=== PATIENT | male | born 1960 | race African-American/Black ===

== ENCOUNTER → 2019-02-05 | Outpatient (CLI) | payer MEDICAID, OTHER ==
[2019-02-05 18:24] LABS: BASO % 0.5 % (0.0-1.0); EOS # 0.2 10^3/uL (0.0-0.50); EOS % 2.9 % (0.0-3.0); HEMATOCRIT 47.6 % (42.0-52.0); HEMOGLOBIN 15.7 g/dl (13.5-17.5); LYMPH % 36.6 % (24.0-44.0); MEAN CORPUSCULAR HEMOGLOBIN 29.6 pg (27.0-33.0); MEAN CORPUSCULAR VOLUME 89.8 fl (80.0-96.0); MONO # 0.5 10^3/uL (0.0-0.8); MONO % 5.6 % (0.0-5.0); NEUTROPHILS # 4.4 10^3/uL (1.8-7.7); PLATELET COUNT, AUTOMATED 271 10^3/uL (150-450); WHITE BLOOD COUNT 8.2 10^3/uL (4.0-10.0)
[2019-02-05 18:41] LABS: HEMOGLOBIN A1c 6.6 %
[2019-02-05 18:54] LABS: ALBUMIN 3.9 GM/DL (3.2-5.2); ALT/SGPT 23 U/L (12-78); BILIRUBIN,TOTAL 0.5 MG/DL (0.2-1.0); BLOOD UREA NITROGEN 17 MG/DL (7-18); CALCIUM LEVEL 9.1 MG/DL (8.5-10.1); CARBON DIOXIDE LEVEL 30 MEQ/L (21-32); CHLORIDE LEVEL 103 MEQ/L (98-107); CHOLESTEROL LEVEL 206 MG/DL (<200); CREATININE FOR GFR 1.12 MG/DL (0.70-1.30); FREE T4 0.96 NG/DL (0.76-1.46); GLOMERULAR FILTRATION RATE > 60.0 (>56); GLUCOSE, FASTING 75 MG/DL (70-100); HDL CHOLESTEROL 40 MG/DL (>40); LDL CHOLESTEROL 120 MG/DL (<100); NON-HDL-C 166 MG/DL; POTASSIUM SERUM 4.6 MEQ/L (3.5-5.1); SODIUM LEVEL 139 MEQ/L (136-145); TOTAL PROTEIN 7.8 GM/DL (6.4-8.2); TRIGLYCERIDES LEVEL 232 MG/DL (<150); TROPONIN I < 0.02 NG/ML (< 0.10)
[2019-02-05 18:55] LABS: TOTAL 25(OH) VITAMIN D 15.8 NG/ML (30.0-100.0)
[2019-02-05 20:14] LABS: APPEARANCE, URINE HAZY (CLEAR); BACTERIA, URINE AUTO 2+ (NEGATIVE); BILIRUBIN, URINE AUTO NEGATIVE (NEGATIVE); BLOOD, URINE BLOOD 2+ (NEGATIVE); COLOR, URINE YELLOW (YELLOW); GLUCOSE, URINE (UA) AUTO NEGATIVE (NEGATIVE); KETONE, URINE AUTO NEGATIVE (NEGATIVE); LEUKOCYTE ESTERASE, URINE AUTO 3+ (NEGATIVE); MUCUS, URINE SMALL (NEGATIVE); NITRITE, URINE AUTO POSITIVE (NEGATIVE); PROTEIN, URINE AUTO NEGATIVE (NEGATIVE); RBC, URINE AUTO 4 /HPF (0-3); SPECIFIC GRAVITY URINE AUTO 1.013 (1.002-1.035); SQUAMOUS EPITHELIAL CELL UR AU 0 /HPF (0-6); UROBILINOGEN, URINE AUTO 0.2 mg/dL (0.0-2.0); WBC, URINE AUTO 71 /HPF (0-3)
[2019-02-08 00:06] LABS: Lyme Disease IgG/IgM Antibodie <0.91 ISR (0.00-0.90); Lyme Disease IgM Ab Quantitati <0.80 index (0.00-0.79)
== END ==
LOC: M LAB 17:19
PROVIDERS: ATTEND Family Medicine
DX: Z13.228 Encounter for screening for other metabolic disorders (principal); R07.89 Other chest pain

== ENCOUNTER → 2019-03-05 | Outpatient (REF) | payer MEDICAID ==
[2019-03-05 20:20] LABS: APPEARANCE, URINE HAZY (CLEAR); BACTERIA, URINE AUTO 2+ (NEGATIVE); BILIRUBIN, URINE AUTO NEGATIVE (NEGATIVE); BLOOD, URINE BLOOD NEGATIVE (NEGATIVE); COLOR, URINE YELLOW (YELLOW); GLUCOSE, URINE (UA) AUTO NEGATIVE (NEGATIVE); KETONE, URINE AUTO NEGATIVE (NEGATIVE); LEUKOCYTE ESTERASE, URINE AUTO 3+ (NEGATIVE); NITRITE, URINE AUTO POSITIVE (NEGATIVE); PROTEIN, URINE AUTO NEGATIVE (NEGATIVE); RBC, URINE AUTO 3 /HPF (0-3); SPECIFIC GRAVITY URINE AUTO 1.018 (1.002-1.035); SQUAMOUS EPITHELIAL CELL UR AU 1 /HPF (0-6); UROBILINOGEN, URINE AUTO 0.2 mg/dL (0.0-2.0); WBC, URINE AUTO 68 /HPF (0-3)
[2019-03-06 00:50] LABS: CHLAMYDIA DNA AMPLIFICATION NEGATIVE (NEGATIVE); GC DNA AMPLIFICATION NEGATIVE (NEGATIVE)
== END ==
LOC: M LAB REF 19:00
PROVIDERS: ATTEND Family Medicine
DX: N30.01 Acute cystitis with hematuria (principal)

== ENCOUNTER 2019-06-30 05:18 | Inpatient (IN) | payer MEDICAID, OTHER ==
[~2019-06-30] VITALS: Ht 175.3 cm; Wt 99.1 kg
[2019-06-30] MEDS ORDERED: MORPHINE 10 MG/ML 1ML VIAL (J2270) IV ONE (05:45)
[2019-06-30] MEDS ORDERED: TAMSULOSIN 0.4 MG CAP PO ONE (05:45)
[2019-06-30] MEDS ORDERED: NS 1,000 ML IV ONE (05:45)
[2019-06-30 06:06] LABS: BASO # 0.1 10^3/uL (0.0-0.2); BASO % 0.3 % (0.0-1.0); EOS # 0.1 10^3/uL (0.0-0.5); EOS % 0.4 % (0.0-3.0); HEMATOCRIT 44.7 % (42.0-52.0); HEMOGLOBIN 15.1 g/dl (13.5-17.5); LYMPH # 2.4 10^3/uL (1.5-5.0); LYMPH % 15.1 % (24.0-44.0); MEAN CORPUSCULAR HEMOGLOBIN 30.8 pg (27.0-33.0); MEAN CORPUSCULAR HGB CONC 33.8 g/dl (32.0-36.5); MEAN CORPUSCULAR VOLUME 91.2 fl (80.0-96.0); MONO % 6.1 % (0.0-5.0); NEUTROPHILS # 12.1 10^3/uL (1.5-8.5); NEUTROPHILS % 77.8 % (36.0-66.0); PLATELET COUNT, AUTOMATED 243 10^3/uL (150-450); WHITE BLOOD COUNT 15.6 10^3/uL (4.0-10.0)
[2019-06-30 06:27] LABS: ALBUMIN 3.9 GM/DL (3.2-5.2); ALT/SGPT 19 U/L (12-78); BILIRUBIN,DIRECT 0.2 MG/DL (0.0-0.2); BILIRUBIN,TOTAL 1.2 MG/DL (0.2-1.0); BLOOD UREA NITROGEN 17 MG/DL (7-18); CALCIUM LEVEL 9.4 MG/DL (8.5-10.1); CARBON DIOXIDE LEVEL 28 MEQ/L (21-32); CHLORIDE LEVEL 102 MEQ/L (98-107); CREATININE FOR GFR 1.25 MG/DL (0.70-1.30); GLOMERULAR FILTRATION RATE > 60.0 (>56); GLUCOSE, FASTING 141 MG/DL (70-100); LIPASE 201 U/L (73-393); POTASSIUM SERUM 3.7 MEQ/L (3.5-5.1); SODIUM LEVEL 135 MEQ/L (136-145); TOTAL PROTEIN 7.7 GM/DL (6.4-8.2)
[2019-06-30] MEDS ORDERED: KETOROLAC 30 MG/ML VIAL (J1885) IV ONE (07:00)
[2019-06-30] MEDS ORDERED: cefTRIAXone SOD 1 GM in D5W MINI-BAG PLUS 50 ML IV ONE (07:00)
[2019-06-30] MEDS ORDERED: MORPHINE 4 MG/ML 1ML VIAL/SYRINGE (J2270) IV PRN (08:30)
[2019-06-30] MEDS ORDERED: ACETAMINOPHEN TAB 650MG DOSE (2X325MG) PO PRN (08:30)
[2019-06-30] MEDS ORDERED: ONDANSETRON 4MG/2ML VIAL (J2405) IV PRN (08:30)
--- NOTE | 2019-06-30 09:08 | HPEPDOC ---
General Date of Admission Jun 30, 2019 at 08:16 Date of Service: Jun 30, 2019 Attending Physician: GAIL REYES DO Chief Complaint The patient is a 58-year-old male admitted with a reason for visit of Flank Pain. Source: Patient Exam Limitations: No limitations Timing/Duration: 4-6 hours Severity: Severe Associated Symptoms: Chills, Nausea, Vomiting, Other (right flank pain) History of Present Illness Patient is 58 years old male with past medical history of hypertension, nephrolithiasis presented hospital with right flank pain. Patient stated the pain was associated with nausea and vomiting, started around 7-8 hours ago, intensive 9 out of 10. Patient noticed pink urine. In ER patient was found to have leukocytosis of 15.6, urine analysis shows microhematuria. Preliminary reading of CT scan showed, dilatation of right ureter, atrophic right kidney, no stones, showed the pelvic mass. Of note, patient stated that 10 years ago he had the surgery, he does not remember diagnosis but he stated that a cyst was removed from his bladder and prostate. He does not remember in which hospital surgery was done. Patient denies fever, palpitations, shortness of breath, diarrhea. Also note patient had history of nephrolithiasis 7 years ago, he passed the stone Home Medications No Active Prescriptions or Reported Meds Allergies Coded Allergies: Contrast Media (Verified Allergy, Intermediate, sob, 06/30/19) Past Medical History Medical History Hypertension, nephrolithiasis Family History Mother had colon cancer Father had emphysema Social History * Smoker: current smoker Alcohol: Denies Drugs: denies A-FIB/CHADSVASC A-FIB History Current/History of A-Fib/PAF?: No Current PO Anticoag Therapy: No Review of Systems Constitutional: Reports: Chills, Malaise, Fatigue Eyes: Denies: Pain, Vision change ENT: Denies: Head Aches, Ear Pain Skin: Denies: Rash, Lesions Pulmonary: Denies: Dyspnea, Cough Cardiovascular: Denies: Chest Pain, Palpitations Gastrointestinal: Reports: Nausea, Vomiting Genitourinary: Reports: Dysuria, Frequency, Hematuria Hematologic: Denies: Bruising, Bleeding Excessively Endocrine: Denies: Polydipsia, Polyphagia Musculoskeletal: Denies: Neck Pain, Back Pain Neurological: Denies: Weakness, Numbness Psych: Reports: Mood Normal Physical Examination General Exam: Positive: Alert, Cooperative Eye Exam: Positive: PERRLA ENT Exam: Positive: Atraumatic, Mucous membr. moist/pink Neck Exam: Positive: Supple; Negative: JVD Chest Exam: Positive: Clear to auscultation Heart Exam: Positive: Tachycardic Telemetry: Positive: No significant arrhythmia Abdomen Exam: Positive: BS Hypoactive Extremity Exam: Negative: Clubbing, Cyanosis Skin Exam: Positive: Nl turgor and temperature Neuro Exam: Positive: Normal Gait, Normal Speech, Strength at 5/5 X4 ext Vital Signs Vital Signs Date Time Temp Pulse Resp B/P (MAP) Pulse Ox O2 Delivery O2 Flow Rate FiO2 06/30/19 06:25 14 06/30/19 05:57 06/30/19 05:18 97.2 86 97 Room Air Laboratory Data Labs 24H Laboratory Tests 2 06/30/19 05:54: Immature Granulocyte % (Auto) 0.3, White Blood Count 15.6H, Red Blood Count 4.90, Hemoglobin 15.1, Hematocrit 44.7, Mean Corpuscular Volume 91.2, Mean Corpuscular Hemoglobin 30.8, Mean Corpuscular Hemoglobin Concent 33.8, Red Cell Distribution Width 13.9, Platelet Count 243, Neutrophils (%) (Auto) 77.8H, Lymphocytes (%) (Auto) 15.1L, Monocytes (%) (Auto) 6.1H, Eosinophils (%) (Auto) 0.4, Basophils (%) (Auto) 0.3, Neutrophils # (Auto) 12.1H, Lymphocytes # (Auto) 2.4, Monocytes # (Auto) 1.0H, Eosinophils # (Auto) 0.1, Basophils # (Auto) 0.1, Nucleated Red Blood Cells % (auto) 0.0, Anion Gap 5L, Glomerular Filtration Rate > 60.0, Calcium Level 9.4, Aspartate Amino Transf (AST/SGOT) 14, Alanine A minotransferase (ALT/SGPT) 19, Alkaline Phosphatase 97, Total Bilirubin 1.2H, Direct Bilirubin 0.2, Total Protein 7.7, Albumin 3.9, Albumin/Globulin Ratio 1.03, Lipase 201 06/30/19 06:12: Urine Color YELLOW, Urine Appearance CLOUDYH, Urine pH 5.0, Urine Specific [place] 1.020, Urine Protein 2+H, Urine Glucose (UA) NEGATIVE, Urine Ketones TRACEH, Urine Blood 3+H, Urine Nitrite NEGATIVE, Urine Bilirubin NEGATIVE, Urine Urobilinogen 2.0H, Urine Leukocyte Esterase 3+H, Urine WBC (Auto) TNTCH, Urine RBC (Auto) 119H, Urine Hyaline Casts (Auto) 0, Urine Bacteria (Auto) NEGATIVE, Urine Squamous Epithelial Cells 1, Urine Mucus (Auto) SMALL, Urine Sperm (Auto) CBC/BMP Laboratory Tests 06/30/19 05:54 Red Blood Count 4.90, Mean Corpuscular Volume 91.2, Mean Corpuscular Hemoglobin 30.8, Mean Corpuscular Hemoglobin Concent 33.8, Red Cell Distribution Width 13.9, Neutrophils (%) (Auto) 77.8 H, Lymphocytes (%) (Auto) 15.1 L, Monocytes (%) (Auto) 6.1 H, Eosinophils (%) (Auto) 0.4, Basophils (%) (Auto) 0.3, Neutrophils # (Auto) 12.1 H, Lymphocytes # (Auto) 2.4, Monocytes # (Auto) 1.0 H, Eosinophils # (Auto) 0.1, Basophils # (Auto) 0.1 Microbiology Microbiology 06/30/19 Urine Culture, Received Pending Assessment/Plan Patient is 58 years old male with past medical history of hypertension, nephrolithiasis presented hospital with right flank pain. Patient stated the pain was associated with nausea and vomiting, started around 7-8 hours ago, intensive 9 out of 10. Patient noticed pink urine. In ER patient was found to have leukocytosis of 15.6, urine analysis shows microhematuria. Preliminary reading of CT scan showed, dilatation of right ureter, atrophic right kidney, no stones, showed the pelvic mass. Problems (1) Pyelonephritis of right kidney Status: Acute Problem Text: Secondary to possible ureteral stricture, nephrolithiasis or pelvis mass urine culture, blood culture Lactic acid Ceftriaxone IV Neurologist consult (2) Flank pain Status: Acute Problem Text: Secondary to possible ureteral stone which already passed or ureteral stricture Pain management Continue antibiotics Patient will need cystoureterogram. We will discuss it with urologist (3) Hematuria Status: Acute Problem Text: Most likely likely secondary to kidney stone IV fluid for now (4) Stricture of right ureter Status: Acute Problem Text: Differential diagnoses include congenital ureteral stricture, compression by pelvis mass which was found on the CT scan (5) Mass of pelvis Problem Text: Unknown etiology for now Preliminary reading of CT scan shows large mass in the pelvis Patient did have a surgery 10 years ago in the pelvis area as he stated for cyst , however he does not remember diagnosis and in which hospital it was done Surgical consult Plan / VTE VTE Prophylaxis Ordered?: Yes GAIL REYES DO Jun 30, 2019 09:08
[2019-06-30 10:00] VITALS: BP 130/90
--- NOTE | 2019-06-30 10:19 | CR.PDOC ---
General Date of Consultation: Jun 30, 2019 Consultation REASON FOR CONSULTATION/CHIEF COMPLAINT: Right flank pain. HISTORY OF PRESENT ILLNESS: 58-year-old male with a 1 day history of right flank pain. Patient states the pain is nonradiating. He reports nausea but denies vomiting. He denies fever or chills. He reports an episode of colic 10 years ago which was secondary to a right ureteral stone. Patient underwent right ureteroscopy. Patient is reporting hematuria. Patient reports a decreased urinary stream. He feels he has incomplete emptying. He denies a history of urinary retention. Patient reports a history of a removal of a pelvic cyst in 2008. 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 CT scan was reviewed. Patient has an atrophic right kidney with hydronephrosis and hydroureter. No stone is present. A large pelvic cyst is present posterior to the prostate and seminal vesicles. ALLERGIES: Please see below. HOME MEDICATIONS: Please see below. PAST MEDICAL HISTORY: 1. Hypertension. PAST SURGICAL HISTORY: 1. Right radical orchiectomy for trauma 2. Circumcision 3. Removal of pelvic cyst 4. Right hand surgery 5. Sinus surgery 6. Ureteroscopy SOCIAL HISTORY: Tobacco use: Patient smokes 1 pack per day for 45 years REVIEW OF SYSTEMS: 10 point review of systems was reviewed and noncontributory PHYSICAL EXAM: Well-developed well-nourished male in no apparent distress HEENT: Unremarkable Respiratory: No respiratory distress Cardiovascular: No peripheral edema Abdomen: Mildly obese, soft nondistended with mild right lower quadrant tenderness. 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 Rectal examination reveals a large firm pelvic mass which is nontender. The prostate is not palpable. Extremities: Full range of motion Neuro: No focal deficits Skin: Warm and dry LABORATORY DATA: Please see below. Urinalysis shows too numerous to count WBCs, 119 RBCs WBC 15.6 BUN 17, creatinine 1.25 CT scan as above ASSESSMENT/PLAN: 1. Right flank pain associated with pyuria. 2. Atrophic right kidney with hydronephrosis and hydroureter. 3. Large pelvic cyst Patient likely has a urinary tract infection. Recommend urine culture and IV antibiotics with IV hydration. Patient appears to have an atrophic kidney which may either be congenital or secondary to his prior ureteroscopy in 2009. Patient also has a large pelvic cyst of unknown etiology. Patient may have an atopic right ureter with a large pelvic ureterocele. Once patient is cleared of his infection and medically stable he may require interventional radiology to aspirate the pelvic cyst. Recommend surgical consultation for his pelvic mass. We will follow with you during his hospitalization. Vital Signs/I&O Vital Signs Date Time Temp Pulse Resp B/P (MAP) Pulse Ox O2 Delivery O2 Flow Rate FiO2 06/30/19 09:50 98.3 89 16 138/78 (98) 98 Room Air Laboratory Data Labs 24H Laboratory Tests 2 06/30/19 05:54: Immature Granulocyte % (Auto) 0.3, White Blood Count 15.6H, Red Blood Count 4.90, Hemoglobin 15.1, Hematocrit 44.7, Mean Corpuscular Volume 91.2, Mean Corpuscular Hemoglobin 30.8, Mean Corpuscular Hemoglobin Concent 33.8, Red Cell Distribution Width 13.9, Platelet Count 243, Neutrophils (%) (Auto) 77.8H, Lymphocytes (%) (Auto) 15.1L, Monocytes (%) (Auto) 6.1H, Eosinophils (%) (Auto) 0.4, Basophils (%) (Auto) 0.3, Neutrophils # (Auto) 12.1H, Lymphocytes # (Auto) 2.4, Monocytes # (Auto) 1.0H, Eosinophils # (Auto) 0.1, Basophils # (Auto) 0.1, Nucleated Red Blood Cells % (auto) 0.0, Anion Gap 5L, Glomerular Filtration Rate > 60.0, Calcium Level 9.4, Aspartate Amino Transf (AST/SGOT) 14, Alanine Aminotransferase (ALT/SGPT) 19, Alkaline Phosphatase 97, Total Bilirubin 1.2H, Direct Bilirubin 0.2, Total Protein 7.7, Albumin 3.9, Albumin/Globulin Ratio 1.03, Lipase 201 06/30/19 06:12: Urine Color YELLOW, Urine Appearance CLOUDYH, Urine pH 5.0, Urine Specific [place] 1.020, Urine Protein 2+H, Urine Glucose (UA) NEGATIVE, Urine Ketones TRACEH, Urine Blood 3+H, Urine Nitrite NEGATIVE, Urine Bilirubin NEGATIVE, Urine Urobilinogen 2.0H, Urine Leukocyte Esterase 3+H, Urine WBC (Auto) TNTCH, Urine RBC (Auto) 119H, Urine Hyaline Casts (Auto) 0, Urine Bacteria (Auto) NEGATIVE, Urine Squamous Epithelial Cells 1, Urine Mucus (Auto) SMALL, Urine Sperm (Auto) 06/30/19 09:09: Lactic Acid Level 0.9 CBC/BMP Laboratory Tests 06/30/19 05:54 Red Blood Count 4.90, Mean Corpuscular Volume 91.2, Mean Corpuscular Hemoglobin 30.8, Mean Corpuscular Hemoglobin Concent 33.8, Red Cell Distribution Width 13.9, Neutrophils (%) (Auto) 77.8 H, Lymphocytes (%) (Auto) 15.1 L, Monocytes (%) (Auto) 6.1 H, Eosinophils (%) (Auto) 0.4, Basophils (%) (Auto) 0.3, Neutrophils # (Auto) 12.1 H, Lymphocytes # (Auto) 2.4, Monocytes # (Auto) 1.0 H, Eosinophils # (Auto) 0.1, Basophils # (Auto) 0.1 Microbiology Microbiology 06/30/19 Blood Culture, Received Pending 06/30/19 Urine Culture, Received Pending Allergies Coded Allergies: Contrast Media (Verified Allergy, Intermediate, sob, 06/30/19) Home Medications No Active Prescriptions or Reported Meds Cristóbal Borrero MD Jun 30, 2019 10:19
[2019-06-30] MEDS: HEPARIN SOD (PORCINE) 5000 UNITS/ML VIAL SC SCH ×2 (10:36→20:51)
[2019-06-30] MEDS: NS 1,000 ML IV SCH ×3 (10:37→19:57)
[2019-06-30 14:00] VITALS: BP 133/74
[2019-06-30 22:00] VITALS: BP 129/89
[2019-07-01 02:00] VITALS: BP 130/88
[2019-07-01] MEDS: NS 1,000 ML IV SCH ×2 (04:11→16:27)
[2019-07-01 06:00] VITALS: BP 130/88
[2019-07-01] MEDS: cefTRIAXone SOD 1 GM in D5W MINI-BAG PLUS 50 ML IV SCH (06:48)
[2019-07-01 07:21] LABS: HEMATOCRIT 40.7 % (42.0-52.0); HEMOGLOBIN 13.4 g/dl (13.5-17.5); MEAN CORPUSCULAR HGB CONC 32.9 g/dl (32.0-36.5); MEAN CORPUSCULAR VOLUME 91.1 fl (80.0-96.0); PLATELET COUNT, AUTOMATED 207 10^3/uL (150-450); RED BLOOD COUNT 4.47 10^6/uL (4.30-6.10); WHITE BLOOD COUNT 9.7 10^3/uL (4.0-10.0)
[2019-07-01 07:49] LABS: BLOOD UREA NITROGEN 12 MG/DL (7-18); CALCIUM LEVEL 8.3 MG/DL (8.5-10.1); CARBON DIOXIDE LEVEL 24 MEQ/L (21-32); CHLORIDE LEVEL 110 MEQ/L (98-107); CREATININE FOR GFR 1.05 MG/DL (0.70-1.30); GLOMERULAR FILTRATION RATE > 60.0 (>56); GLUCOSE, FASTING 111 MG/DL (70-100); POTASSIUM SERUM 3.9 MEQ/L (3.5-5.1); SODIUM LEVEL 138 MEQ/L (136-145)
[2019-07-01] MEDS: HEPARIN SOD (PORCINE) 5000 UNITS/ML VIAL SC SCH ×2 (09:33→20:53)
[2019-07-01] MEDS: TAMSULOSIN 0.4 MG CAP PO SCH (09:33)
[2019-07-01 14:00] VITALS: BP 145/88
--- NOTE | 2019-07-01 14:32 | IPNPDOC ---
Text Note Date of Service The patient was seen on 07/01/19. NOTE Subjective: Patient stated that his abdominal pain subsided significantly. P atient denies fever, chills, nausea, vomiting, palpitations, shortness of breath, diarrhea or dysuria Chylous Objective: Vitals: reviewed General: Alert and oriented x 3, not in distress HEENT: No pallor, Mild scleral icterus. Normal oropharynx, NO cervical lymph nodes. Chest: symmetric with bilateral clear air entry, CVS: S1, S2 heard, normal, no murmurs . Abdomen: non-distended, no surgical scars, soft, Minimal tender, no palpable masses, normal bowel sounds heard. Extremities: no pedal edema, pulses palpable. ELECTRICAL SYSTEMS DRAFTER: no focal motor or sensory deficits. Moves all extremities Skin: no rash. Patient is 58 years old male with past medical history of hypertension, nephrolithiasis presented hospital with right flank pain. Patient stated the pain was associated with nausea and vomiting, started around 7-8 hours ago, intensive 9 out of 10. Patient noticed pink urine. In ER patient was found to have leukocytosis of 15.6, urine analysis shows microhematuria. Preliminary reading of CT scan showed, dilatation of right ureter, atrophic right kidney, no stones, showed the pelvic mass. (1) Pyelonephritis of right kidney Secondary to possible ureteral stricture, nephrolithiasis or pelvis mass urine culture pending PTH elevated, most likely patient has primary hyperparathyroidism which can be cause of nephrolithiasis. We will check calcium ionized and vitamin D. Patient will need pizza maker consult in the outpatient settings. Given his history of nephrolithiasis most likely patient will need parathyroidectomy. blood culture negative for 24 hours Ceftriaxone IV Urologist Dr Borrero follows him (2) Flank pain resolved Secondary to possible ureteral stone which already passed or ureteral stricture Pain management Continue antibiotics Patient will need cystoureterogram. We will discuss it with urologist (3) Hematuria Most likely likely secondary to kidney stone IV fluid for now (4) Stricture of right ureter Differential diagnoses include congenital ureteral stricture, compression by pelvis mass which was found on the CT scan (5) Mass of pelvis Problem Text: Unknown etiology for now Preliminary reading of CT scan shows large mass in the pelvis Patient did have a surgery 10 years ago in the pelvis area as he stated for cyst, however he does not remember diagnosis and in which hospital it was done Surgical consult VS,Mathew, I+O VS, Mathew, I+O Laboratory Tests 07/01/19 07:11 Red Blood Count 4.47, Mean Corpuscular Volume 91.1, Mean Corpuscular Hemoglobin 30.0, Mean Corpuscular Hemoglobin Concent 32.9, Red Cell Distribution Width 14.0, Calcium Level 8.3 L Vital Signs Date Time Temp Pulse Resp B/P (MAP) Pulse Ox O2 Delivery O2 Flow Rate FiO2 07/01/19 06:00 98.9 86 16 130/88 (102) 99 06/30/19 09:50 Room Air I&O- Last 24 Hours up to 6 AM 07/01/19 05:59 Intake Total 3290 ml Output Total 675 ml Balance 2615 ml GAIL REYES DO Jul 01, 2019 14:32
--- NOTE | 2019-07-01 16:14 | CR.PDOC ---
General Surgery Consultation Date of Consultation 06/30/19 History and Physical CONSULT REPORT FOR: hospitalist service REASON FOR CONSULTATION: pelvic mass HISTORY OF PRESENT ILLNESS: Patient presented with acute onset of right flank pain that started overnight accompanied with nausea and vomiting. He also reports hematuria. He reports a remote history of removing a cyst in between his bladder and prostate. He could not recall where this was done. This is roughly 10 years ago. He is also not sure what the final pathology was area he denies any chronic concerns about his kidney. He did report a history of urinary bladder stones. In the ER he was evaluated was found to have evidence for pyelonephritis. His kidney looks atrophic. He has some underlying hydro nephrosis and was found to have this cystic mass in his pelvis that is compressing on the urinary bladder also pushing the rectum towards the left side. He denies any complaints of changes in his bowel habits, bleeding with bowel movements. He reports prior colonoscopy in 2015 or 17 in [place] I believe and he was told he had polyps. He denies any unexplained weight loss. PAST MEDICAL HISTORY: 1. Hypertension 2. Nephrolithiasis. PAST SURGICAL HISTORY: INCLUDES: 1. Resection of a cyst in the pelvis. The final pathology is unknown. Presumably this is benign.. ALLERGIES: Please see below. FAMILY HISTORY: Mother was reported to have colon cancer. HOME MEDICATIONS: Please see below. REVIEW OF SYSTEMS: GENERAL: Patient reports having chills, not sure if he was febrile at that time. HEENT: [Denies blurred vision and double vision. Denies ear symptoms. Denies h oarseness]. NECK: Denies any neck pain CARDIOVASCULAR: [Denies chest pain and palpitations]. MUSCULOSKELETAL: [Denies arthralgias, back pain and thrombophlebitis]. SKIN: [Denies rash]. NEUROLOGIC: [Denies headache, stroke and transient ischemic attack]. HEMATOLOGY/ONCOLOGY: [Denies bleeding or clotting disorder]. HEART: [Denies any chest pains, palpitations, paroxysmal dyspnea, orthopnea]. PULMONARY: [Denies chronic cough, dyspnea and wheezing]. GASTROINTESTINAL: As noted in HPI. Has had colonoscopy in 2005 CR 2016. GENITOURINARY: See HPI. ENDOCRINE: [Denies polydipsia, polyphagia, polyuria, heat or cold intolerance]. INFECTIOUS: [Denies any recent upper respiratory tract infection, UTI, need for use of antibiotics]. NUTRITION: [Reports good appetite]. PHYSICAL EXAMINATION: VITALS SIGNS: Please see below. GENERAL APPEARANCE: Patient seen laying flat on bed appears comfortable at the time that I saw him. Reports pains about 7 out of 10 mostly in his right flank denies any anterior abdominal discomfort. He looks overall healthy appearing. SKIN: Warm and dry. HEENT: [Normocephalic, atraumatic. [place] palpebral conjunctiva, anicteric sclerae]. NECK: [Supple, no thyromegaly. No obvious jugular venous distention]. LUNGS: [Clear to auscultation bilaterally. No wheezing appreciated]. HEART: [No chest wall abnormalities. Regular rate and rhythm with no murmurs appreciated]. ABDOMEN: Abdomen is round, soft, and nondistended. No tenderness on the upper abdomen. Minimal discomfort with pressure at the suprapubic area with no point tenderness. He has moderate CVA tenderness on mild palpation on the right side not on the left. EXTREMITIES: [Extremities have no deformities. No edema identified] ANCILLARIES: . LABORATORY DATA: Please see below. IMAGING STUDIES: CT abdomen and pelvis Markedly atrophic right kidney which demonstrate moderate to severe hydronephrosis and hydroureter to the level of the UVJ with no hyperdense obstructing stone. The renal after we could be congenital or be secondary to chronic outlet obstruction with obstruction being at the UVJ due to either s tricture or obstructive lesion. Perinephric and periureteral stranding suggest acute underlying infection pyelitis/pyelonephritis. Contracted urinary bladder limiting its evaluation with suggestion of wall thickening. 3.9 x 8.6 x 7.6 and right hemipelvic cyst it is not clear if this is originating in exophytic from the prostate gland or seminal vesicle or from the [place]' duct. 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 The presence of some surgical clips in the right pelvis raises the question of postsurgical seroma or urinoma. IMPRESSION AND PLAN: Pelvic cyst Hydronephrosis with a chronic atrophic kidney on the right side Pelvic cyst most likely related to the urogenital structure. Given prior history of something being removed there, I would think this would've been related to that. Unfortunately we do not have any pathology from that. Patient could not recall where the procedure was done. I don't think this is related to the rectum. He is not having any symptoms related to his bowel movements and has had a previous colonoscopy in the past 3 years or so that did not mention any structural abnormality. Granted we doesn't have any report of that. There is any question, can refer to radiology for biopsy of the cyst for pathology reasons. I don't think there is any active general surgical issues at this point and will sign out.. Vital Signs Vital Signs Date Time Temp Pulse Resp B/P (MAP) Pulse Ox O2 Delivery O2 Flow Rate FiO2 07/01/19 14:00 98.0 72 20 145/88 (107) 97 06/30/19 09:50 Room Air I&Os I&O- Last 24 Hours up to 6 AM 07/01/19 05:59 Intake Total 3290 ml Output Total 675 ml Balance 2615 ml Laboratory Data Labs 24H Laboratory Tests 2 07/01/19 07:11: Nucleated Red Blood Cells % (auto) 0.0, Anion Gap 4L, Glomerular Filtration Rate > 60.0, Blood Urea Nitrogen 12, Creatinine 1.05, Sodium Level 138, Potassium Level 3.9, Chloride Level 110H, Carbon Dioxide Level 24, Calcium Level 8.3L 07/01/19 14:49: Whole Blood Ionized Calcium 4.4L CBC/BMP Laboratory Tests 07/01/19 07:11 Red Blood Count 4.47, Mean Corpuscular Volume 91.1, Mean Corpuscular Hemoglobin 30.0, Mean Corpuscular Hemoglobin Concent 32.9, Red Cell Distribution Width 14.0, Calcium Level 8.3 L Microbiology Microbiology 06/30/19 Blood Culture - Preliminary, Resulted No growth after 24 hours . All specim... 06/30/19 Urine Culture, Received Pending Home Medications No Active Prescriptions or Reported Meds Allergies Coded Allergies: Contrast Media (Verified Allergy, Intermediate, sob, 06/30/19) EVERT BARNETT MD Jul 01, 2019 16:14
[2019-07-01 22:00] VITALS: BP 150/89
[2019-07-01] MEDS ORDERED: SENOKOT S TAB PO PRN (22:15)
[2019-07-02] MEDS: NS 1,000 ML IV SCH ×2 (01:56→06:39)
[2019-07-02 05:55] LABS: HEMATOCRIT 39.9 % (42.0-52.0); HEMOGLOBIN 13.1 g/dl (13.5-17.5); MEAN CORPUSCULAR HEMOGLOBIN 29.4 pg (27.0-33.0); MEAN CORPUSCULAR HGB CONC 32.8 g/dl (32.0-36.5); MEAN CORPUSCULAR VOLUME 89.5 fl (80.0-96.0); PLATELET COUNT, AUTOMATED 220 10^3/uL (150-450); RED BLOOD COUNT 4.46 10^6/uL (4.30-6.10)
[2019-07-02 06:00] VITALS: BP 150/90
[2019-07-02 06:18] LABS: BLOOD UREA NITROGEN 10 MG/DL (7-18); CALCIUM LEVEL 8.6 MG/DL (8.5-10.1); CARBON DIOXIDE LEVEL 24 MEQ/L (21-32); CHLORIDE LEVEL 109 MEQ/L (98-107); CREATININE FOR GFR 1.01 MG/DL (0.70-1.30); GLOMERULAR FILTRATION RATE > 60.0 (>56); GLUCOSE, FASTING 97 MG/DL (70-100); MAGNESIUM LEVEL 1.9 MG/DL (1.8-2.4); POTASSIUM SERUM 3.8 MEQ/L (3.5-5.1); SODIUM LEVEL 139 MEQ/L (136-145)
[2019-07-02] MEDS: cefTRIAXone SOD 1 GM in D5W MINI-BAG PLUS 50 ML IV SCH (06:39)
--- NOTE | 2019-07-02 08:02 | IPNPDOC ---
Date Seen The patient was seen on 07/02/19. Progress Note SUBJECTIVE: Patient reports no pain. Denies voiding sx. OBJECTIVE PHYSICAL EXAMINATION: VITAL SIGNS: Please see below. Abdomen: soft non tender, no CVA-tenderness LABORATORY DATA, IMAGING STUDIES, MICROBIOLOGY: Please see below. urine c/s E. coli ASSESSMENT AND PLAN: UTI, urine c/s positive for E. coli. May change to po antibiotics and continue treatment 10-14 days. Patient has an atrophic right kidney and large pelvic mass. This can be worked up as an outpatient. Urologically clear for discharge. Patient should follow up with Dr. Llanes in 2 weeks. DISPOSITION: home VS, I&O, 24H, Fishbone Vital Signs/I&O Vital Signs Date Time Temp Pulse Resp B/P (MAP) Pulse Ox O2 Delivery O2 Flow Rate FiO2 07/01/19 22:00 98.9 77 19 150/89 (109) 100 06/30/19 09:50 Room Air I&O- Last 24 Hours up to 6 AM 07/02/19 06:00 Intake Total 3930 ml Output Total 1950 ml Balance 1980 ml Laboratory Data 24H LABS Laboratory Tests 2 07/01/19 14:49: Whole Blood Ionized Calcium 4.4L 07/02/19 05:27: Nucleated Red Blood Cells % (auto) 0.0, Anion Gap 6L, Glomerular Filtration Rate > 60.0, Blood Urea Nitrogen 10, Creatinine 1.01, Sodium Level 139, Potassium Level 3.8, Chloride Level 109H, Carbon Dioxide Level 24, Calcium Level 8.6, Magnesium Level 1.9 CBC/BMP Laboratory Tests 07/02/19 05:27 Red Blood Count 4.46, Mean Corpuscular Volume 89.5, Mean Corpuscular Hemoglobin 29.4, Mean Corpuscular Hemoglobin Concent 32.8, Red Cell Distribution Width 13.7, Calcium Level 8.6 Microbiology Microbiology 06/30/19 Blood Culture - Preliminary, Resulted No growth after 24 hours . All specim... 06/30/19 Urine Culture - Final, Complete Escherichia Coli Cristóbal Borrero MD Jul 02, 2019 08:02
[2019-07-02] MEDS: HEPARIN SOD (PORCINE) 5000 UNITS/ML VIAL SC SCH (09:20)
[2019-07-02] MEDS: TAMSULOSIN 0.4 MG CAP PO SCH (09:20)
[2019-07-02] MEDS ORDERED: BACT800T5 PO (13:48)
[2019-07-02 14:00] VITALS: BP 158/95
[2019-07-02] MEDS ORDERED: ACET1TAB55 PO (15:31)
[2019-07-02] MEDS ORDERED: TRAM50TA2 PO (15:31)
--- NOTE | 2019-07-02 16:16 | DS.PDOC ---
Discharge Summary General Date of Admission Jun 30, 2019 at 08:16 Date of Discharge 07/02/19 Discharge Summary PROCEDURES PERFORMED DURING STAY: [None]. ADMITTING DIAGNOSES: 1. Pyelonephritis 2. Hematuria 3. R. ureter stricture 4. Pelvis mass DISCHARGE DIAGNOSES: 1. Pyelonephritis 2. Hematuria 3. R. ureter stricture 4. Pelvis mass COMPLICATIONS/CHIEF COMPLAINT: Flank Pain. HISTORY OF PRESENT ILLNESS: "Patient is 58 years old male with past medical history of hypertension, nephrolithiasis presented hospital with right flank pain. Patient stated the pain was associated with nausea and vomiting, started around 7-8 hours ago, intensive 9 out of 10. Patient noticed pink urine. In ER patient was found to have leukocytosis of 15.6, urine analysis shows microhematuria. Preliminary reading of CT scan showed, dilatation of right ureter, atrophic right kidney, no stones, showed the pelvic mass. Of note, patient stated that 10 years ago he had the surgery, he does not remember diagnosis but he stated that a cyst was removed from his bladder and prostate. He does not remember in which hospital surgery was done. Patient denies fever, palpitations, shortness of breath, diarrhea. Also note patient had history of nephrolithiasis 7 years ago, he passed the stone" HOSPITAL COURSE: Patient's urine culture grew E. coli and patient has been treated with IV Rocephin with improvement in symptoms. Was evaluated by both Surgery and Urology while inpatient as patient was noted to have pelvic mass/cyst with atrophic R. kidney. Kidney function remains stable during admission and patient currently asymptomatic. Was deem to be appropriate for outpatient follow up by urology with Dr. Llanes in 2 weeks. Patient to be discharged to f/u PMD and Urology. In addition, PTH was also noted to be elevated and will need Endocrine follow up. Was not seen inpatient, will need referral from PMD. DISCHARGE MEDICATIONS: Please see below. ALLERGIES: Please see below. PHYSICAL EXAMINATION ON DISCHARGE: VITAL SIGNS: Please see below. General: No acute distress, Alert Eyes: Normal sclera, EOMI, GARRICK HENT: Atraumatic, neck supple, moist mucous membranes Cardiovascular: Normal rate, normal rhythm. No murmurs appreciated. Pulmonary: Clear to auscultation b/l, no wheezing GI: Soft, nontender, nondistended Skin: Warm and dry Neuro: CN grossly intact. No focal deficits. Strengths equal b/l. Psych: oriented x 3 LABORATORY DATA: Please see below. IMAGING: CT abdomen and pelvis- Markedly atrophic right kidney which demonstrate moderate to severe hydronephrosis and hydroureter to the level of the UVJ with no hyperdense obstructing stone. The renal after we could be congenital or be secondary to chronic outlet obstruction with obstruction being at the UVJ due to either stricture or obstructive lesion. Perinephric and periureteral stranding suggest acute underlying infection pyelitis/pyelonephritis. Contracted urinary bladder limiting its evaluation with suggestion of wall thickening. 3.9 x 8.6 x 7.6 and right hemipelvic cyst it is not clear if this is originating in exophytic from the prostate gland or seminal vesicle or from the Cowpers' duct. Also given its proximity the rectum and good curber and duplication cyst. The presence of some surgical clips in the right pelvis raises the question of postsurgical seroma or urinoma. ACTIVITY: [As tolerated]. DIET: 2 gram sodium diet DISCHARGE PLAN: f/u PMD AND UROLOGY Get Endocrine referral from PMD for elevated PTH DISPOSITION: home. DISCHARGE INSTRUCTIONS: f/u PMD AND UROLOGY Get Endocrine referral from PMD for elevated PTH ITEMS TO FOLLOWUP ON ON OUTPATIENT: None DISCHARGE CONDITION: [Stable]. TIME SPENT ON DISCHARGE: 35 minutes. Vital Signs/I&Os Vital Signs Date Time Temp Pulse Resp B/P (MAP) Pulse Ox O2 Delivery O2 Flow Rate FiO2 07/02/19 14:00 97.8 69 20 158/95 (116) 98 06/30/19 09:50 Room Air I&O- Last 24 Hours up to 6 AM 07/02/19 06:00 Intake Total 5670 ml Output Total 2450 ml Balance 3220 ml Laboratory Data Labs 24H Laboratory Tests 2 07/02/19 05:27: Nucleated Red Blood Cells % (auto) 0.0, Anion Gap 6L, Glomerular Filtration Rate > 60.0, Blood Urea Nitrogen 10, Creatinine 1.01, Sodium Level 139, Potassium Level 3.8, Chloride Level 109H, Carbon Dioxide Level 24, Calcium Level 8.6, Magnesium Level 1.9 CBC/BMP Laboratory Tests 07/02/19 05:27 Red Blood Count 4.46, Mean Corpuscular Volume 89.5, Mean Corpuscular Hemoglobin 29.4, Mean Corpuscular Hemoglobin Concent 32.8, Red Cell Distribution Width 13.7, Calcium Level 8.6 Microbiology Microbiology 06/30/19 Blood Culture - Preliminary, Resulted No Growth after 48 hours. All Specime... 06/30/19 Urine Culture, Received Pending 06/30/19 Urine Culture - Final, Complete Escherichia Coli Discharge Medications Scheduled Sulfamethoxazole/Trimethoprim (Bactrim Ds Tablet) 1 Each Tablet, 1 TAB PO BID Scheduled PRN Acetaminophen (Acetaminophen) 325 Mg Tablet, 650 MG PO Q6HP PRN for MILD PAIN or TEMP > 101 Tramadol HCl (Tramadol HCl) 50 Mg Tablet, 50 MG PO Q8HP PRN for pain Allergies Coded Allergies: Contrast Media (Verified Allergy, Intermediate, sob, 06/30/19) LISE LOCKHART MD Jul 02, 2019 16:16
== END 2019-07-02 16:09 | disposition home or self-care (01) | DRG 463 ==
LOC: M ED 05:18 → M ED INP 08:16 → M MSPAV 10:22
PROVIDERS: ADMIT Internal Medicine; ATTEND Student in an Organized Health Care Education/Training Program
DX: N13.6 Pyonephrosis (principal); I10 Essential (primary) hypertension; R19.07 Generalized intra-abdominal and pelvic swelling, mass and lump; R31.9 Hematuria, unspecified; N20.0 Calculus of kidney; F17.210 Nicotine dependence, cigarettes, uncomplicated; D72.829 Elevated white blood cell count, unspecified; Z91.041 Radiographic dye allergy status; B96.20 Unspecified Escherichia coli [E. coli] as the cause of diseases classified elsewhere; N26.1 Atrophy of kidney (terminal); E21.0 Primary hyperparathyroidism

== ENCOUNTER → 2019-07-10 | Outpatient (CLI) | payer OTHER ==
[~2019-07-10] MED LIST: ACET1TAB55 PO; BACT800T5 PO; TRAM50TA2 PO
[2019-07-10 12:53] LABS: HEMOGLOBIN A1c 6.4 %
[2019-07-10 13:06] LABS: ALBUMIN 3.9 GM/DL (3.2-5.2); ALT/SGPT 31 U/L (12-78); BILIRUBIN,TOTAL 0.8 MG/DL (0.2-1.0); BLOOD UREA NITROGEN 15 MG/DL (7-18); CALCIUM LEVEL 9.4 MG/DL (8.5-10.1); CARBON DIOXIDE LEVEL 27 MEQ/L (21-32); CHLORIDE LEVEL 107 MEQ/L (98-107); CHOLESTEROL LEVEL 185 MG/DL (<200); CHOLESTEROL RISK RATIO 5.285 (<5); CREATININE FOR GFR 1.45 MG/DL (0.70-1.30); GLOMERULAR FILTRATION RATE > 60.0 (>56); GLUCOSE, FASTING 104 MG/DL (70-100); HDL CHOLESTEROL 35 MG/DL (>40); LDL CHOLESTEROL 126 MG/DL (<100); NON-HDL-C 150 MG/DL; SODIUM LEVEL 137 MEQ/L (136-145); TOTAL PROTEIN 7.6 GM/DL (6.4-8.2); TRIGLYCERIDES LEVEL 122 MG/DL (<150)
[2019-07-10 13:14] LABS: MALB URINE SIEMENS 8.3 MG/L; MAU/CREAT RATIO 5.6 MCG/MG (0.0-30.0)
== END ==
LOC: M LAB 11:45
PROVIDERS: ATTEND Family Medicine
DX: E11.9 Type 2 diabetes mellitus without complications (principal)

== ENCOUNTER → 2019-07-19 | Outpatient (CLI) | payer OTHER ==
[~2019-07-19] MED LIST changes: +FUROSEMIDE 20 MG/2 ML VIAL (J1940) As Ordered ONE
--- NOTE | 2019-07-19 11:13 | REP ---
Nuclear renal scintigraphy with differential flow function analysis and post Lasix washout renography: History: Atrophic kidney. Comparison CT study June 30, 2019. The CT study shows a fairly large right pelvic cyst adjacent to and perhaps arising from the right seminal vesicle or prostate. There is ipsilateral atrophy and hydronephrosis of the right kidney. Technique: 8.8 mCi technetium 99m Mag 3 is injected and posterior flow and excretory phase images are acquired. Renal cortical regions of interest are drawn for time activity analysis. 20 mg of intravenous Lasix is administered and post Lasix washout renography is carried out. Scintigraphic findings: Posterior flow study shows normal perfusion of the left kidney and markedly delayed visualization of the right kidney. Excretory phase images demonstrate a homogeneous nephrogram phase on the left and very poor function of the right kidney. The left ureter is visualized at 2-3 minute carissa. The right ureter is never visualized during the initial 30 minutes. The intrarenal collecting system on the right is visualized and appears mildly hydronephrotic. Pre and postvoid images are remarkable only for overall poor clearance of soft tissue background activity. Differential renal function analysis is asymmetric with 92% of overall renal cortical counts coming from the left kidney and 8% from the right. Time to peak activity is normal for the left kidney at 2.0 minutes. Time to half max activity is normal for the left kidney at 9.9 minutes. Post Lasix renography shows poor initial uptake in the right kidney with the time to half Lasix bilaterally at 12 minutes. Impression: Atrophic right kidney with very poor function. Mild right hydronephrosis. Electronically Signed by Sabas Vasquez MD 07/19/2019 12:58 P
== END ==
LOC: M RAD 06:57
PROVIDERS: ATTEND Nurse Practitioner Family
DX: N26.1 Atrophy of kidney (terminal) (principal); N13.30 Unspecified hydronephrosis
CPT/HCPCS: 78708; A9562; J1940

== ENCOUNTER 2019-09-21 14:55 | Emergency (ER) | payer OTHER ==
[~2019-09-21] VITALS: Ht 175.3 cm; Wt 95.5 kg
[~2019-09-21 14:55] MED LIST changes: -FUROSEMIDE 20 MG/2 ML VIAL (J1940) As Ordered ONE
[2019-09-21] MEDS ORDERED: ASPIRIN 81 MG CHEW TABLET PO ONE (15:15)
[2019-09-21] MEDS ORDERED: NITROGLYCERIN 0.4 MG SUBL TABLET SL PRN (15:15)
[2019-09-21 15:16] LABS: BASO % 0.5 % (0.0-1.0); EOS # 0.2 10^3/uL (0.0-0.5); EOS % 2.1 % (0.0-3.0); HEMATOCRIT 46.9 % (42.0-52.0); LYMPH % 40.4 % (24.0-44.0); MEAN CORPUSCULAR VOLUME 90.7 fl (80.0-96.0); MONO # 0.6 10^3/uL (0.0-0.8); MONO % 7.5 % (0.0-5.0); NEUTROPHILS # 3.6 10^3/uL (1.5-8.5); NEUTROPHILS % 49.4 % (36.0-66.0); PLATELET COUNT, AUTOMATED 283 10^3/uL (150-450); RED BLOOD COUNT 5.17 10^6/uL (4.30-6.10); WHITE BLOOD COUNT 7.3 10^3/uL (4.0-10.0)
[2019-09-21 15:25] VITALS: BP 193/102
[2019-09-21 15:34] LABS: INR 1.01
--- NOTE | 2019-09-21 15:35 | REP ---
Chest x-ray: Two views. History: Chest pain . Comparison study: No comparison study . Findings: The lungs are well inflated and free of infiltrate. The pleural angles are sharp. The heart size is normal. Pulmonary vasculature is not increased. No significant bony abnormality is seen. Monitoring electrodes are visible. Impression: Negative chest x-ray. Electronically Signed by Sabas Vasquez MD 09/21/2019 03:27 P
[2019-09-21 15:49] LABS: ALBUMIN 3.5 GM/DL (3.2-5.2); ALT/SGPT 19 U/L (12-78); BILIRUBIN,DIRECT 0.1 MG/DL (0.0-0.2); BILIRUBIN,TOTAL 0.5 MG/DL (0.2-1.0); BLOOD UREA NITROGEN 15 MG/DL (7-18); CALCIUM LEVEL 8.6 MG/DL (8.5-10.1); CARBON DIOXIDE LEVEL 26 MEQ/L (21-32); CHLORIDE LEVEL 107 MEQ/L (98-107); CK-MB VALUE MASS 1.6 NG/ML (<3.6); CPK CREATINE PHOSPHOKINASE 115 U/L (39-308); CREATININE FOR GFR 1.21 MG/DL (0.70-1.30); FREE T4 1.06 NG/DL (0.76-1.46); GLOMERULAR FILTRATION RATE > 60.0 (>56); GLUCOSE, FASTING 122 MG/DL (70-100); LIPASE 359 U/L (73-393); MB/CK RELATIVE INDEX 1.39 (< OR =4); POTASSIUM SERUM 3.7 MEQ/L (3.5-5.1); SODIUM LEVEL 137 MEQ/L (136-145); TOTAL PROTEIN 7.6 GM/DL (6.4-8.2); TROPONIN I < 0.02 NG/ML (< 0.10)
[2019-09-21 21:53] LABS: CK-MB VALUE MASS 1.3 NG/ML (<3.6); CPK CREATINE PHOSPHOKINASE 107 U/L (39-308); MB/CK RELATIVE INDEX 1.21 (< OR =4); TROPONIN I < 0.02 NG/ML (< 0.10)
[2019-09-21 22:15] VITALS: BP 155/98
--- NOTE | 2019-09-22 05:54 | ECGEPIP ---
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
--- NOTE | 2019-09-22 21:06 | ECGEPIP ---
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
== END 2019-09-21 22:42 | disposition home or self-care (01) ==
LOC: M ED 14:55
DX: R07.9 Chest pain, unspecified (principal); I10 Essential (primary) hypertension; Z87.442 Personal history of urinary calculi; F17.200 Nicotine dependence, unspecified, uncomplicated; Z91.041 Radiographic dye allergy status; Z91.14 Patient's other noncompliance with medication regimen

== ENCOUNTER → 2019-12-13 | Outpatient (REF) ==
[2019-12-13 12:23] LABS: RUBELLA IgG QUALITATIVE IMMUNE (IMMUNE)
[2019-12-14 14:07] LABS: HERPES ZOSTER, VARICELLA IgG 1723 index (Immune >165); HERPES ZOSTER, VARICELLA IgM <0.91 index (0.00-0.90); RUBEOLA IgG ANTIBODY >300.0 AU/mL (Immune >16.4)
== END ==
LOC: M LAB 11:09
PROVIDERS: ATTEND Nurse Practitioner Adult Health
DX: Z00.00 Encounter for general adult medical examination without abnormal findings (principal)

== ENCOUNTER → 2020-06-04 | Outpatient (REF) | payer OTHER, MEDICAID ==
[2020-06-04 13:34] LABS: AMORPHOUS SEDIMENT SMALL (NEGATIVE); APPEARANCE, URINE CLEAR (CLEAR); BACTERIA, URINE AUTO 1+ (NEGATIVE); BILIRUBIN, URINE AUTO NEGATIVE (NEGATIVE); BLOOD, URINE BLOOD NEGATIVE (NEGATIVE); COLOR, URINE YELLOW (YELLOW); GLUCOSE, URINE (UA) AUTO NEGATIVE (NEGATIVE); KETONE, URINE AUTO NEGATIVE (NEGATIVE); LEUKOCYTE ESTERASE, URINE AUTO TRACE (NEGATIVE); NITRITE, URINE AUTO NEGATIVE (NEGATIVE); PROTEIN, URINE AUTO NEGATIVE (NEGATIVE); RBC, URINE AUTO 1 /HPF (0-3); SPECIFIC GRAVITY URINE AUTO 1.015 (1.002-1.035); SQUAMOUS EPITHELIAL CELL UR AU 0 /HPF (0-6); UROBILINOGEN, URINE AUTO 0.2 mg/dL (0.0-2.0); WBC, URINE AUTO 3 /HPF (0-3)
[2020-06-04 14:19] LABS: BASO % 0.6 % (0.0-1.0); EOS # 0.2 10^3/uL (0.0-0.5); HEMATOCRIT 46.5 % (42.0-52.0); HEMOGLOBIN 15.4 g/dl (13.5-17.5); LYMPH # 2.5 10^3/uL (1.5-5.0); LYMPH % 35.5 % (24.0-44.0); MEAN CORPUSCULAR HEMOGLOBIN 29.8 pg (27.0-33.0); MEAN CORPUSCULAR HGB CONC 33.1 g/dl (32.0-36.5); MEAN CORPUSCULAR VOLUME 90.1 fl (80.0-96.0); MONO # 0.5 10^3/uL (0.0-0.8); NEUTROPHILS # 3.7 10^3/uL (1.5-8.5); NEUTROPHILS % 53.6 % (36.0-66.0); PLATELET COUNT, AUTOMATED 285 10^3/uL (150-450); RED BLOOD COUNT 5.16 10^6/uL (4.30-6.10)
[2020-06-04 14:53] LABS: ALBUMIN 3.8 GM/DL (3.2-5.2); ALT/SGPT 29 U/L (12-78); BILIRUBIN,TOTAL 0.6 MG/DL (0.2-1.0); BLOOD UREA NITROGEN 19 MG/DL (7-18); CALCIUM LEVEL 9.8 MG/DL (8.5-10.1); CARBON DIOXIDE LEVEL 28 MEQ/L (21-32); CHLORIDE LEVEL 104 MEQ/L (98-107); CHOLESTEROL LEVEL 184 MG/DL (<200); CREATININE FOR GFR 1.21 MG/DL (0.70-1.30); FREE T4 1.27 NG/DL (0.76-1.46); GLOMERULAR FILTRATION RATE > 60.0 (>56); GLUCOSE, FASTING 132 MG/DL (70-100); HDL CHOLESTEROL 42 MG/DL (>40); LDL CHOLESTEROL 122 MG/DL (<100); NON-HDL-C 142 MG/DL; POTASSIUM SERUM 4.2 MEQ/L (3.5-5.1); SODIUM LEVEL 139 MEQ/L (136-145); TOTAL PROTEIN 7.2 GM/DL (6.4-8.2); TRIGLYCERIDES LEVEL 102 MG/DL (<150)
[2020-06-04 16:42] LABS: HEMOGLOBIN A1c 6.7 %
== END ==
LOC: M LAB REF 12:24
PROVIDERS: ATTEND Nurse Practitioner Family
DX: I10 Essential (primary) hypertension (principal); F41.9 Anxiety disorder, unspecified; E55.9 Vitamin D deficiency, unspecified; F17.218 Nicotine dependence, cigarettes, with other nicotine-induced disorders; E11.9 Type 2 diabetes mellitus without complications

== ENCOUNTER → 2021-02-21 | Outpatient (CLI) | payer OTHER, MEDICAID ==
[~2021-02-21] MED LIST changes: +ACET-907 PO; +AMLO1TAB24 PO; +DOXY-350 PO
== END ==
LOC: M LABSMTC 08:57
PROVIDERS: ATTEND Anesthesiology
DX: Z01.812 Encounter for preprocedural laboratory examination (principal); Z20.822 Contact with and (suspected) exposure to COVID-19

== ENCOUNTER 2021-02-26 11:06 | Day surgery (SDC) | payer OTHER ==
[~2021-02-26] VITALS: Ht 175.3 cm; Wt 99.3 kg
[~2021-02-26 11:06] MED LIST changes: +NS 1,000 ML IV ONE
[2021-02-26] MEDS ORDERED: propofoL 200 MG/20 ML VIAL As Ordered ONE (13:49)
[2021-02-26] MEDS ORDERED: LIDOCAINE 2% INJ 100 MG/5 ML SYRINGE As Ordered ONE (13:49)
--- NOTE | 2021-02-26 14:28 | ROOR ---
Patient Name: Alfredo Polanco Procedure Date: 02/26/2021 1:51 PM Date of : 1960 Age: 60 Room: [facility] Gender: Male Note Status: Finalized Procedure: Colonoscopy Indications: High risk colon cancer surveillance: Personal history of colonic polyps, Family history of colon cancer in a first-degree relative before age 60 years Providers: Laith Baeza MD Referring MD: Yina Rosenberg NP Requesting Provider: Medicines: Monitored Anesthesia Care Complications: No immediate complications. Procedure: Pre-Anesthesia Assessment: - The heart rate, respiratory rate, oxygen saturations, blood pressure, adequacy of pulmonary ventilation, and response to care were monitored throughout the procedure. The Colonoscope was introduced through the anus and advanced to 10 cm into the ileum. The colonoscopy was performed without difficulty. The patient tolerated the procedure well. The quality of the bowel preparation was good. Findings: The perianal and digital rectal examinations were normal. Four semi-sessile polyps were found in the ascending colon and cecum. The polyps were 4 to 6 mm in size. These polyps were removed with a cold snare. Resection and retrieval were complete. Three sessile polyps were found in the splenic flexure. The polyps were 4 to 5 mm in size. These polyps were removed with a cold snare. Resection and retrieval were complete. Eight sessile polyps were found in the recto-sigmoid colon and sigmoid colon. The polyps were 4 to 5 mm in size. These polyps were removed with a cold snare. Resection and retrieval were complete. Internal hemorrhoids were found during retroflexion. The hemorrhoids were moderate. Retroflexion in the right colon was performed. Benign appearing extrinsic impression in the rectal/rectosigmoid colon. Impression: - Four 4 to 6 mm polyps in the ascending colon and in the cecum, removed with a cold snare. Resected and retrieved. - Three 4 to 5 mm polyps at the splenic flexure, removed with a cold snare. Resected and retrieved. - Eight 4 to 5 mm polyps at the recto-sigmoid colon and in the sigmoid colon, removed with a cold snare. Resected and retrieved. - Internal hemorrhoids. - (4-5 cm extrinsic impression on the colon in the rectal/rectosigmoid area. Benign appearance.--soft to digital palpation) Recommendation: - Repeat colonoscopy for surveillance. - Perform CT scan (computed tomography) of the pelvis with contrast at appointment to be scheduled. - My office will call you in the next few days to set you up for this study/exam. Procedure Code(s): --- Professional --- 27532, Colonoscopy, flexible; with removal of tumor(s), polyp(s), or other lesion(s) by snare technique Diagnosis Code(s): --- Professional --- Z80.0, Family history of malignant neoplasm of digestive organs K64.8, Other hemorrhoids K63.5, Polyp of colon Z86.010, Personal history of colonic polyps CPT copyright 2019 [employer]. All rights reserved. The codes documented in this report are preliminary and upon events director review may be revised to meet current compliance requirements. Laith Baeza MD Laith Baeza MD 02/26/2021 2:27:39 PM Electronically signed by Laith Baeza MD Number of Addenda: 0 Note Initiated On: 02/26/2021 1:51 PM Estimated Blood Loss: Estimated blood loss: none.
[2021-02-26 14:42] VITALS: BP 162/78
== END 2021-02-26 15:03 | disposition home or self-care (01) ==
LOC: M OPP 11:06
PROVIDERS: ATTEND Internal Medicine Gastroenterology
DX: Z12.11 Encounter for screening for malignant neoplasm of colon (principal); Z86.010 Personal history of colon polyps; Z80.0 Family history of malignant neoplasm of digestive organs; K63.5 Polyp of colon; K64.8 Other hemorrhoids; F17.210 Nicotine dependence, cigarettes, uncomplicated; Z79.899 Other long term (current) drug therapy; Z91.041 Radiographic dye allergy status; Z80.3 Family history of malignant neoplasm of breast

== ENCOUNTER → 2021-03-25 | Outpatient (CLI) | payer OTHER ==
[~2021-03-25] MED LIST changes: -NS 1,000 ML IV ONE
--- NOTE | 2021-03-25 10:11 | REP ---
INDICATION: NEOPLASM OF DIGESTIVE SYSTEM. COMPARISON: 06/30/2019 TECHNIQUE: Standard helical technique without intravenous contrast FINDINGS: The lung bases are clear. There is no significant change in appearance of the solid intra-organs or gallbladder. There is no change in appearance of the pancreas, adrenal glands, or kidneys. Note is again made of marked right renal atrophy. The hydronephrosis and hydroureter seen previously on the right has resolved. The right-sided perinephric stranding seen previously has resolved. There is no significant change in appearance of the abdominal aorta or para-regions. There is no significant change in appearance of the bowel loops or the mesenteries. There is no free fluid or free air. The large posterior pelvic cystic mass is completely unchanged. It measures approximately 9 x 8.4 by 7.5 cm. No adenopathy has developed. Bone window technique throughout the exam shows the osseous structures to be stable. IMPRESSION: 1. Improved right renal collecting system findings as described above. 2. Stable pelvic cystic mass, again, etiology uncertain. 3. Other findings as described above. <Electronically signed by Rahat Solis > 03/25/21 1007
== END ==
LOC: M RAD 09:33
PROVIDERS: ATTEND Internal Medicine Gastroenterology
DX: D49.0 Neoplasm of unspecified behavior of digestive system (principal)

== ENCOUNTER → 2021-10-08 | Outpatient (CLI) | payer OTHER | LOC: M SOG 14:46 | PROVIDERS: ATTEND Orthopaedic Surgery Hand Surgery | DX: M25.531 Pain in right wrist (principal) ==

== ENCOUNTER → 2021-10-09 | Outpatient (CLI) | payer OTHER ==
[2021-10-09 11:48] LABS: BLOOD UREA NITROGEN 11 MG/DL (7-18); CREATININE FOR GFR 1.18 MG/DL (0.70-1.30); GLOMERULAR FILTRATION RATE > 60.0 (>49)
== END ==
LOC: M LAB 10:03
PROVIDERS: ATTEND Orthopaedic Surgery Hand Surgery
DX: S60.811A Abrasion of right wrist, initial encounter (principal); W18.30XA Fall on same level, unspecified, initial encounter; Y92.009 Unspecified place in unspecified non-institutional (private) residence as the place of occurrence of the external cause

== ENCOUNTER 2021-10-11 13:24 | Inpatient (IN) | payer OTHER ==
[~2021-10-11] VITALS: Ht 175.3 cm; Wt 99.6 kg
[2021-10-11] MEDS: fentaNYL 100 MCG/2 ML INJECTION (J3010) IV PRN (13:38)
[2021-10-11] MEDS ORDERED: PIPERACILLIN/TAZOBACTAM SOD 3.375 GM in D5W MINI-BAG PLUS 50 ML IV ONE (14:15)
[2021-10-11] MEDS ORDERED: VANCOMYCIN HCL 2,000 MG in D5W 500 ML IV ONE (14:15)
[2021-10-11] MEDS ORDERED: KETOROLAC 30 MG/ML 1ML VIAL IV ONE (14:25)
[2021-10-11 15:13] LABS: BASO % 0.4 % (0.0-1.0); EOS # 0.1 10^3/uL (0.0-0.5); EOS % 0.9 % (0.0-3.0); HEMATOCRIT 44.9 % (42.0-52.0); HEMOGLOBIN 15.2 g/dl (13.5-17.5); LYMPH % 20.6 % (24.0-44.0); MEAN CORPUSCULAR HEMOGLOBIN 29.3 pg (27.0-33.0); MEAN CORPUSCULAR HGB CONC 33.9 g/dl (32.0-36.5); MEAN CORPUSCULAR VOLUME 86.5 fl (80.0-96.0); MONO # 0.4 10^3/uL (0.0-0.8); MONO % 4.5 % (2.0-8.0); NEUTROPHILS # 7.2 10^3/uL (1.5-8.5); NEUTROPHILS % 73.2 % (36.0-66.0); PLATELET COUNT, AUTOMATED 338 10^3/uL (150-450); RED BLOOD COUNT 5.19 10^6/uL (4.30-6.10); WHITE BLOOD COUNT 9.8 10^3/uL (4.0-10.0)
[2021-10-11] MEDS ORDERED: HOME MED LIST COMPLETE! XX SCH (15:25)
[2021-10-11 15:45] LABS: BLOOD UREA NITROGEN 15 MG/DL (7-18); CALCIUM LEVEL 9.4 MG/DL (8.8-10.2); CARBON DIOXIDE LEVEL 27 MEQ/L (21-32); CHLORIDE LEVEL 98 MEQ/L (98-107); CREATININE FOR GFR 1.28 MG/DL (0.70-1.30); GLOMERULAR FILTRATION RATE > 60.0 (>49); GLUCOSE, FASTING 440 MG/DL (70-100); POTASSIUM SERUM 4.3 MEQ/L (3.5-5.1); SODIUM LEVEL 131 MEQ/L (136-145)
[2021-10-11] MEDS ORDERED: NS 1,000 ML IV ONE (15:50)
[2021-10-11] MEDS ORDERED: DEXTROSE 50% 50 ML SYRINGE IV PRN (16:00)
[2021-10-11] MEDS ORDERED: GLUCOSE 4GM CHEW TABLET PO PRN (16:00)
[2021-10-11] MEDS ORDERED: VANCOMYCIN HCL 1,000 MG, VIAL MATE ADAPTER 1 EACH in NS 250 ML IV ONE ×2 (16:00→17:00)
[2021-10-11] MEDS ORDERED: MOM 30ML SUSPENSION UDC PO PRN (16:00)
[2021-10-11] MEDS ORDERED: LEVEMIR (INSULIN DETEMIR) 1 UNITS/0.01ML SC ONE (16:00)
[2021-10-11] MEDS ORDERED: GLUCAGON INJ 1MG VIAL SC PRN (16:00)
[2021-10-11 16:04] LABS: ERYTHROCYTE SEDIMENTATION RATE 32 mm/hr (0-20)
[2021-10-11 16:40] LABS: HEMOGLOBIN A1c 9.7 %
[2021-10-11 17:40] VITALS: BP 150/82
[2021-10-11] MEDS: HumaLOG INSULIN (NovoLOG) PER UNIT SC SCH ×2 (18:14→21:22)
[2021-10-11] MEDS: ACETAMINOPHEN TAB 650MG DOSE (2X325MG) PO PRN (18:14)
[2021-10-11] MEDS ORDERED: PIPERACILLIN IV SCH (18:20)
[2021-10-11] MEDS ORDERED: FLUID PLACE HOLDER IV SCH ×2 (18:20)
[2021-10-11] MEDS ORDERED: VANCOMYCIN HCL IV SCH (18:20)
[2021-10-11] MEDS ORDERED: TAZOBACTAM SOD IV SCH (18:20)
[2021-10-11 19:13] LABS: BLOOD UREA NITROGEN 15 MG/DL (7-18); CARBON DIOXIDE LEVEL 25 MEQ/L (21-32); CHLORIDE LEVEL 104 MEQ/L (98-107); CREATININE FOR GFR 1.25 MG/DL (0.70-1.30); GLOMERULAR FILTRATION RATE > 60.0 (>49); GLUCOSE, FASTING 300 MG/DL (70-100); SODIUM LEVEL 134 MEQ/L (136-145)
[2021-10-11 19:14] LABS: CALCIUM LEVEL 9.3 MG/DL (8.8-10.2)
[2021-10-11 19:54] VITALS: BP 167/91
[2021-10-11] MEDS: DOCUSATE SODIUM 100MG CAPSULE PO SCH (21:00)
[2021-10-11] MEDS: PIPERACILLIN/TAZOBACTAM SOD 3.375 GM in D5W MINI-BAG PLUS 50 ML IV SCH (21:22)
[2021-10-11] MEDS: HEPARIN SOD (PORCINE) 5000UNITS/ML 1ML VIAL/SYRINGE SC SCH (21:22)
[2021-10-11] MEDS ORDERED: KETOROLAC 30 MG/ML 1ML VIAL IV PRN (22:45)
[2021-10-11] MEDS ORDERED: amLODIPine 5 MG TAB PO ONE (22:45)
[2021-10-11] MEDS ORDERED: MORPHINE 4 MG/ML 1ML VIAL/SYRINGE (J2270) IV PRN (22:45)
[2021-10-12] VITALS (7 sets, daily range): BP systolic 146–182; BP diastolic 82–104
[2021-10-12] MEDS ORDERED: NS 1,000 ML IV ONE
[2021-10-12] MEDS: VANCOMYCIN HCL 750 MG, VIAL MATE ADAPTER 1 EACH in NS 250 ML IV SCH ×4 (00:21→14:31)
[2021-10-12 00:53] LABS: BLOOD UREA NITROGEN 20 MG/DL (7-18); CARBON DIOXIDE LEVEL 25 MEQ/L (21-32); CHLORIDE LEVEL 110 MEQ/L (98-107); CREATININE FOR GFR 1.17 MG/DL (0.70-1.30); GLOMERULAR FILTRATION RATE > 60.0 (>49); GLUCOSE, FASTING 184 MG/DL (70-100); POTASSIUM SERUM 3.9 MEQ/L (3.5-5.1); SODIUM LEVEL 141 MEQ/L (136-145)
[2021-10-12] MEDS: HEPARIN SOD (PORCINE) 5000UNITS/ML 1ML VIAL/SYRINGE SC SCH (03:01)
[2021-10-12] MEDS: PIPERACILLIN/TAZOBACTAM SOD 3.375 GM in D5W MINI-BAG PLUS 50 ML IV SCH ×4 (03:30→21:08)
[2021-10-12] MEDS ORDERED: PERCOCET 5MG/325MG TAB PO SCH (06:00)
[2021-10-12 06:26] LABS: BASO # 0.1 10^3/uL (0.0-0.2); BASO % 0.7 % (0.0-1.0); EOS # 0.2 10^3/uL (0.0-0.5); HEMATOCRIT 39.8 % (42.0-52.0); HEMOGLOBIN 13.5 g/dl (13.5-17.5); LYMPH # 2.8 10^3/uL (1.5-5.0); LYMPH % 39.6 % (24.0-44.0); MEAN CORPUSCULAR HEMOGLOBIN 29.6 pg (27.0-33.0); MEAN CORPUSCULAR HGB CONC 33.9 g/dl (32.0-36.5); MEAN CORPUSCULAR VOLUME 87.3 fl (80.0-96.0); MONO # 0.5 10^3/uL (0.0-0.8); MONO % 6.9 % (2.0-8.0); NEUTROPHILS # 3.5 10^3/uL (1.5-8.5); NEUTROPHILS % 49.5 % (36.0-66.0); PLATELET COUNT, AUTOMATED 268 10^3/uL (150-450); RED BLOOD COUNT 4.56 10^6/uL (4.30-6.10); WHITE BLOOD COUNT 7.1 10^3/uL (4.0-10.0)
[2021-10-12 06:47] LABS: BLOOD UREA NITROGEN 16 MG/DL (7-18); CALCIUM LEVEL 8.5 MG/DL (8.8-10.2); CARBON DIOXIDE LEVEL 25 MEQ/L (21-32); CHLORIDE LEVEL 109 MEQ/L (98-107); CREATININE FOR GFR 1.06 MG/DL (0.70-1.30); GLOMERULAR FILTRATION RATE > 60.0 (>49); GLUCOSE, FASTING 177 MG/DL (70-100); POTASSIUM SERUM 4.1 MEQ/L (3.5-5.1); SODIUM LEVEL 140 MEQ/L (136-145)
[2021-10-12] MEDS: HumaLOG INSULIN (NovoLOG) PER UNIT SC SCH ×4 (07:30→21:00)
[2021-10-12] MEDS: DOCUSATE SODIUM 100MG CAPSULE PO SCH ×2 (08:37→19:55)
[2021-10-12] MEDS: ENOXAPARIN 40MG/0.4ML SYRINGE (J1650 PER 10MG) SC SCH (09:00)
[2021-10-12] MEDS ORDERED: amLODIPine 5 MG TAB PO SCH (09:00)
[2021-10-12] MEDS ORDERED: NS 1,000 ML IV SCH (09:00)
[2021-10-12] MEDS ORDERED: PERCOCET 5MG/325MG TAB PO PRN (09:00)
[2021-10-12] MEDS ORDERED: fentaNYL 100 MCG/2 ML INJECTION (J3010) ONE (12:01)
[2021-10-12] MEDS ORDERED: MIDAZOLAM INJ 2MG/2ML VIAL (J2250 PER 1MG) ONE (12:01)
[2021-10-12] MEDS ORDERED: propofoL 200 MG/20 ML VIAL ONE (12:02)
[2021-10-12] MEDS ORDERED: LIDOCAINE 2% 100MG/5ML SDV (FOR ANES.) ONE (12:03)
[2021-10-12] MEDS ORDERED: ONDANSETRON 4MG/2ML VIAL ONE (12:54)
[2021-10-12] MEDS ORDERED: METOCLOPRAMIDE INJ 10MG/2ML VIAL (J2765 PER 1) ONE (12:54)
[2021-10-12] MEDS ORDERED: VANCOMYCIN 1000MG/20ML VIAL ONE (13:01)
[2021-10-12] MEDS ORDERED: ceFAZolin 1GM VIAL (J0690 PER 500MG) ONE (13:28)
[2021-10-12] MEDS: fentaNYL 100 MCG/2 ML INJECTION (J3010) IV PRN ×3 (13:43→13:55)
[2021-10-12] MEDS ORDERED: oxyCODONE 5MG TAB PO PRN (14:00)
[2021-10-12] MEDS ORDERED: HYDROMORPHONE HCL 0.5 MG/ 0.5 ML SYRINGE (J1170 PER 1) IV PRN (14:00)
[2021-10-12] MEDS ORDERED: LR 1,000 ML IV SCH (14:00)
[2021-10-12] MEDS ORDERED: ONDANSETRON 4MG/2ML VIAL IV PRN (14:00)
[2021-10-12] MEDS ORDERED: ceFAZolin 1GM VIAL (J0690 PER 500MG) As Ordered ONE (14:14)
[2021-10-12] MEDS ORDERED: VANCOMYCIN 500MG/10ML VIAL As Ordered ONE (14:14)
[2021-10-12] MEDS: PERCOCET 5MG/325MG TAB PO PRN (15:41)
[2021-10-12 18:51] LABS: BLOOD UREA NITROGEN 13 MG/DL (7-18); CALCIUM LEVEL 8.5 MG/DL (8.8-10.2); CARBON DIOXIDE LEVEL 26 MEQ/L (21-32); CHLORIDE LEVEL 106 MEQ/L (98-107); CREATININE FOR GFR 1.13 MG/DL (0.70-1.30); GLOMERULAR FILTRATION RATE > 60.0 (>49); GLUCOSE, FASTING 341 MG/DL (70-100); POTASSIUM SERUM 3.8 MEQ/L (3.5-5.1); SODIUM LEVEL 135 MEQ/L (136-145)
[2021-10-12] MEDS ORDERED: amLODIPine 5 MG TAB PO ONE (19:15)
[2021-10-12] MEDS: LEVEMIR (INSULIN DETEMIR) 1 UNITS/0.01ML SC SCH (21:08)
[2021-10-13] MEDS: VANCOMYCIN HCL 750 MG, VIAL MATE ADAPTER 1 EACH in NS 250 ML IV SCH ×5 (00:02→23:51)
[2021-10-13 01:19] LABS: BLOOD UREA NITROGEN 14 MG/DL (7-18); CALCIUM LEVEL 8.6 MG/DL (8.8-10.2); CARBON DIOXIDE LEVEL 27 MEQ/L (21-32); CHLORIDE LEVEL 108 MEQ/L (98-107); CREATININE FOR GFR 1.06 MG/DL (0.70-1.30); GLOMERULAR FILTRATION RATE > 60.0 (>49); GLUCOSE, FASTING 164 MG/DL (70-100); POTASSIUM SERUM 3.7 MEQ/L (3.5-5.1); SODIUM LEVEL 139 MEQ/L (136-145)
[2021-10-13 02:00] VITALS: BP 146/88
[2021-10-13] MEDS: PIPERACILLIN/TAZOBACTAM SOD 3.375 GM in D5W MINI-BAG PLUS 50 ML IV SCH ×4 (02:32→20:37)
[2021-10-13 05:19] LABS: BASO % 0.5 % (0.0-1.0); EOS # 0.2 10^3/uL (0.0-0.5); EOS % 2.9 % (0.0-3.0); HEMATOCRIT 37.7 % (42.0-52.0); HEMOGLOBIN 12.7 g/dl (13.5-17.5); LYMPH # 3.5 10^3/uL (1.5-5.0); MEAN CORPUSCULAR HEMOGLOBIN 29.3 pg (27.0-33.0); MEAN CORPUSCULAR HGB CONC 33.7 g/dl (32.0-36.5); MEAN CORPUSCULAR VOLUME 86.9 fl (80.0-96.0); MONO # 0.5 10^3/uL (0.0-0.8); MONO % 5.5 % (2.0-8.0); NEUTROPHILS # 4.2 10^3/uL (1.5-8.5); NEUTROPHILS % 49.9 % (36.0-66.0); PLATELET COUNT, AUTOMATED 286 10^3/uL (150-450); RED BLOOD COUNT 4.34 10^6/uL (4.30-6.10); WHITE BLOOD COUNT 8.4 10^3/uL (4.0-10.0)
[2021-10-13 05:44] LABS: BLOOD UREA NITROGEN 12 MG/DL (7-18); CALCIUM LEVEL 8.6 MG/DL (8.8-10.2); CARBON DIOXIDE LEVEL 26 MEQ/L (21-32); CHLORIDE LEVEL 107 MEQ/L (98-107); CREATININE FOR GFR 1.07 MG/DL (0.70-1.30); GLOMERULAR FILTRATION RATE > 60.0 (>49); GLUCOSE, FASTING 164 MG/DL (70-100); POTASSIUM SERUM 3.8 MEQ/L (3.5-5.1); SODIUM LEVEL 138 MEQ/L (136-145)
[2021-10-13 06:00] VITALS: BP 165/95
[2021-10-13] MEDS: DOCUSATE SODIUM 100MG CAPSULE PO SCH ×2 (08:26→20:37)
[2021-10-13] MEDS: HumaLOG INSULIN (NovoLOG) PER UNIT SC SCH ×4 (08:35→20:38)
[2021-10-13] MEDS: ENOXAPARIN 40MG/0.4ML SYRINGE (J1650 PER 10MG) SC SCH (08:35)
[2021-10-13] MEDS: amLODIPine 5 MG TAB PO SCH (08:38)
[2021-10-13] MEDS: PERCOCET 5MG/325MG TAB PO PRN (10:36)
[2021-10-13 12:22] LABS: BLOOD UREA NITROGEN 12 MG/DL (7-18); CARBON DIOXIDE LEVEL 25 MEQ/L (21-32); CHLORIDE LEVEL 107 MEQ/L (98-107); CREATININE FOR GFR 1.07 MG/DL (0.70-1.30); GLOMERULAR FILTRATION RATE > 60.0 (>49); GLUCOSE, FASTING 251 MG/DL (70-100); POTASSIUM SERUM 3.9 MEQ/L (3.5-5.1); SODIUM LEVEL 136 MEQ/L (136-145)
[2021-10-13] MEDS ORDERED: HumaLOG INSULIN (NovoLOG) PER UNIT ONE (13:01)
[2021-10-13 14:00] VITALS: BP 136/82
[2021-10-13] MEDS: ACETAMINOPHEN TAB 650MG DOSE (2X325MG) PO PRN (17:25)
[2021-10-13 19:52] VITALS: BP 146/87
[2021-10-13] MEDS: LEVEMIR (INSULIN DETEMIR) 1 UNITS/0.01ML SC SCH (20:37)
[2021-10-14] MEDS: VANCOMYCIN HCL 750 MG, VIAL MATE ADAPTER 1 EACH in NS 250 ML IV SCH ×2 (02:11→11:59)
[2021-10-14] MEDS: PIPERACILLIN/TAZOBACTAM SOD 3.375 GM in D5W MINI-BAG PLUS 50 ML IV SCH ×2 (03:05→08:26)
[2021-10-14 04:35] LABS: BASO # 0.1 10^3/uL (0.0-0.2); BASO % 0.6 % (0.0-1.0); EOS # 0.2 10^3/uL (0.0-0.5); EOS % 2.8 % (0.0-3.0); HEMATOCRIT 40.1 % (42.0-52.0); HEMOGLOBIN 13.6 g/dl (13.5-17.5); LYMPH # 3.1 10^3/uL (1.5-5.0); LYMPH % 37.7 % (24.0-44.0); MEAN CORPUSCULAR HEMOGLOBIN 29.3 pg (27.0-33.0); MEAN CORPUSCULAR HGB CONC 33.9 g/dl (32.0-36.5); MEAN CORPUSCULAR VOLUME 86.4 fl (80.0-96.0); MONO # 0.5 10^3/uL (0.0-0.8); MONO % 6.4 % (2.0-8.0); NEUTROPHILS # 4.4 10^3/uL (1.5-8.5); NEUTROPHILS % 52.3 % (36.0-66.0); PLATELET COUNT, AUTOMATED 301 10^3/uL (150-450); RED BLOOD COUNT 4.64 10^6/uL (4.30-6.10); WHITE BLOOD COUNT 8.3 10^3/uL (4.0-10.0)
[2021-10-14 06:38] VITALS: BP 152/88
[2021-10-14] MEDS: HumaLOG INSULIN (NovoLOG) PER UNIT SC SCH ×2 (08:23→11:58)
[2021-10-14] MEDS: ENOXAPARIN 40MG/0.4ML SYRINGE (J1650 PER 10MG) SC SCH (08:24)
[2021-10-14 08:26] VITALS: BP 154/89
[2021-10-14] MEDS: amLODIPine 5 MG TAB PO SCH (08:26)
[2021-10-14] MEDS: DOCUSATE SODIUM 100MG CAPSULE PO SCH (08:26)
[2021-10-14] MEDS ORDERED: AMLO1TAB24 PO (09:17)
[2021-10-14] MEDS ORDERED: METF-838 PO (09:17)
[2021-10-14] MEDS ORDERED: TRAM1CAP15 PO (09:17)
[2021-10-14] MEDS ORDERED: JARD1TAB PO (09:17)
[2021-10-14] MEDS ORDERED: LISI2.5T9 PO (09:17)
[2021-10-14] MEDS ORDERED: AUGM875T28 PO (11:33)
[2021-10-14 11:38] LABS: BLOOD UREA NITROGEN 10 MG/DL (7-18); CARBON DIOXIDE LEVEL 28 MEQ/L (21-32); CHLORIDE LEVEL 102 MEQ/L (98-107); CREATININE FOR GFR 1.17 MG/DL (0.70-1.30); GLOMERULAR FILTRATION RATE > 60.0 (>49); GLUCOSE, FASTING 305 MG/DL (70-100); POTASSIUM SERUM 3.8 MEQ/L (3.5-5.1); SODIUM LEVEL 135 MEQ/L (136-145)
[2021-10-14 11:39] LABS: CALCIUM LEVEL 9.2 MG/DL (8.8-10.2); VANCOMYCIN LEVEL TROUGH 19.3 UG/ML (10.0-20.0)
[2021-10-14] MEDS ORDERED: FARX1TAB3 PO (13:01)
[2021-10-14] MEDS ORDERED: BLOOKIT21 XX (18:13)
[2021-10-14] MEDS ORDERED: GLUC1TES2 XX (18:13)
[2021-10-14] MEDS ORDERED: LANC30MI XX (18:13)
[2021-10-14] MEDS ORDERED: ALCOPAD25 TOP (18:13)
== END 2021-10-14 13:45 | disposition home health service (06) | DRG 383 ==
LOC: M ED 13:24 → M ED INP 14:07 → M MS5PR 17:58
PROVIDERS: ADMIT Internal Medicine; ATTEND Internal Medicine
PROC: 0JBG0ZZ Excision of Right Lower Arm Subcutaneous Tissue and Fascia, Open Approach (ICD-10-PCS; principal; 2021-10-12 12:00)
DX: L02.413 Cutaneous abscess of right upper limb (principal); I10 Essential (primary) hypertension; F17.200 Nicotine dependence, unspecified, uncomplicated; Z79.899 Other long term (current) drug therapy; Z91.041 Radiographic dye allergy status; E11.9 Type 2 diabetes mellitus without complications

== ENCOUNTER → 2021-10-11 | Outpatient (CLI) | payer OTHER | LOC: M LABSMTC 11:04 | PROVIDERS: ATTEND Anesthesiology | DX: Z01.818 Encounter for other preprocedural examination (principal); Z11.52 Encounter for screening for COVID-19 ==

== ENCOUNTER → 2021-11-04 | Outpatient (CLI) | payer OTHER ==
[~2021-11-04] MED LIST changes: +ALCOPAD25 TOP; +AUGM875T28 PO; +BLOOKIT21 XX; +FARX1TAB3 PO; +GLUC1TES2 XX; +JARD1TAB PO; +LANC30MI XX; +LISI2.5T9 PO; +METF-838 PO; +TRAM1CAP15 PO
[2021-11-04 12:45] LABS: BASO # 0.1 10^3/uL (0.0-0.2); BASO % 0.5 % (0.0-1.0); EOS # 0.2 10^3/uL (0.0-0.5); EOS % 1.8 % (0.0-3.0); HEMATOCRIT 47.5 % (42.0-52.0); HEMOGLOBIN 15.6 g/dl (13.5-17.5); LYMPH # 3.4 10^3/uL (1.5-5.0); LYMPH % 36.6 % (24.0-44.0); MEAN CORPUSCULAR HGB CONC 32.8 g/dl (32.0-36.5); MEAN CORPUSCULAR VOLUME 88.3 fl (80.0-96.0); MONO # 0.5 10^3/uL (0.0-0.8); MONO % 5.2 % (2.0-8.0); NEUTROPHILS # 5.2 10^3/uL (1.5-8.5); NEUTROPHILS % 55.6 % (36.0-66.0); PLATELET COUNT, AUTOMATED 411 10^3/uL (150-450); RED BLOOD COUNT 5.38 10^6/uL (4.30-6.10); WHITE BLOOD COUNT 9.3 10^3/uL (4.0-10.0)
[2021-11-04 13:14] LABS: ALT/SGPT 21 U/L (12-78); BILIRUBIN,TOTAL 0.5 MG/DL (0.2-1.0); BLOOD UREA NITROGEN 19 MG/DL (7-18); CALCIUM LEVEL 10.4 MG/DL (8.8-10.2); CARBON DIOXIDE LEVEL 26 MEQ/L (21-32); CHLORIDE LEVEL 103 MEQ/L (98-107); CHOLESTEROL LEVEL 208 MG/DL (<200); CHOLESTEROL RISK RATIO 6.709 (<5); CREATININE FOR GFR 1.14 MG/DL (0.70-1.30); GLOMERULAR FILTRATION RATE > 60.0 (>49); GLUCOSE, FASTING 264 MG/DL (70-100); HDL CHOLESTEROL 31 MG/DL (>40); LDL CHOLESTEROL 150 MG/DL (<100); NON-HDL-C 177 MG/DL; SODIUM LEVEL 137 MEQ/L (136-145); TOTAL PROTEIN 8.1 GM/DL (6.4-8.2); TRIGLYCERIDES LEVEL 137 MG/DL (<150)
[2021-11-04 16:11] LABS: HEMOGLOBIN A1c 11.7 %
== END ==
LOC: M LAB 12:13
PROVIDERS: ATTEND Nurse Practitioner Family
DX: E66.9 Obesity, unspecified (principal); Z68.32 Body mass index [BMI] 32.0-32.9, adult

== ENCOUNTER → 2021-11-17 | Outpatient (CLI) | payer OTHER | LOC: M LAB 15:05 | PROVIDERS: ATTEND Urology | DX: Z12.5 Encounter for screening for malignant neoplasm of prostate (principal) ==

== ENCOUNTER → 2021-11-29 | Outpatient (CLI) | payer OTHER | LOC: M RAD 11:30 | PROVIDERS: ATTEND Physician Assistant | DX: N50.812 Left testicular pain (principal) ==

== ENCOUNTER → 2021-11-30 | Outpatient (REF) | payer OTHER ==
[2021-11-30 18:28] LABS: APPEARANCE, URINE HAZY (CLEAR); BACTERIA, URINE AUTO 1+ (NEGATIVE); BILIRUBIN, URINE AUTO NEGATIVE (NEGATIVE); BLOOD, URINE BLOOD NEGATIVE (NEGATIVE); COLOR, URINE YELLOW (YELLOW); GLUCOSE, URINE (UA) AUTO 3+ mg/dL (NEGATIVE); KETONE, URINE AUTO NEGATIVE (NEGATIVE); LEUKOCYTE ESTERASE, URINE AUTO 1+ (NEGATIVE); MUCUS, URINE SMALL (NEGATIVE); NITRITE, URINE AUTO NEGATIVE (NEGATIVE); PROTEIN, URINE AUTO NEGATIVE (NEGATIVE); RBC, URINE AUTO 2 /HPF (0-3); SPECIFIC GRAVITY URINE AUTO 1.029 (1.002-1.035); SQUAMOUS EPITHELIAL CELL UR AU 1 /HPF (0-6); UROBILINOGEN, URINE AUTO 0.2 mg/dL (0.0-2.0); WBC, URINE AUTO 36 /HPF (0-3)
== END ==
LOC: M SMT 17:15
PROVIDERS: ATTEND Physician Assistant
DX: N45.3 Epididymo-orchitis (principal)

== ENCOUNTER 2022-03-19 16:22 | Emergency (ER) | payer OTHER ==
[~2022-03-19] VITALS: Ht 175.3 cm; Wt 80.9 kg
[2022-03-19] MEDS ORDERED: NS 1,000 ML IV ONE (16:45)
[2022-03-19 17:12] LABS: VENOUS BASE EXCESS -1.7 (-2.0-2.0); VENOUS HCO3 24.7 MEQ/L (23.0-27.0); VENOUS O2 SATURATION 68.1 % (60.0-80.0); VENOUS PARTIAL PRESSURE O2 34.4 mmHg (30.0-50.0); VENOUS STANDARD HCO3 22.3 MEQ/L; VENOUS TOTAL CO2 26.2 MEQ/L (24.0-28.0)
[2022-03-19 17:17] LABS: BASO % 0.4 % (0.0-1.0); EOS # 0.1 10^3/uL (0.0-0.5); EOS % 0.9 % (0.0-3.0); HEMATOCRIT 43.2 % (42.0-52.0); HEMOGLOBIN 14.6 g/dl (13.5-17.5); LYMPH # 1.6 10^3/uL (1.5-5.0); LYMPH % 14.5 % (24.0-44.0); MEAN CORPUSCULAR HEMOGLOBIN 30.7 pg (27.0-33.0); MEAN CORPUSCULAR HGB CONC 33.8 g/dl (32.0-36.5); MEAN CORPUSCULAR VOLUME 90.8 fl (80.0-96.0); MONO # 0.6 10^3/uL (0.0-0.8); MONO % 5.2 % (2.0-8.0); NEUTROPHILS # 8.5 10^3/uL (1.5-8.5); NEUTROPHILS % 78.7 % (36.0-66.0); PLATELET COUNT, AUTOMATED 255 10^3/uL (150-450); RED BLOOD COUNT 4.76 10^6/uL (4.30-6.10); WHITE BLOOD COUNT 10.9 10^3/uL (4.0-10.0)
[2022-03-19 17:52] LABS: CALCIUM LEVEL 9.4 MG/DL (8.8-10.2); CREATININE FOR GFR 1.38 MG/DL (0.70-1.30); GLOMERULAR FILTRATION RATE 55.8 (>49); POTASSIUM SERUM 4.5 MEQ/L (3.5-5.1)
[2022-03-19] MEDS ORDERED: HumuLIN R (REGULAR) INSULIN (NovoLIN R) **100U/ML** PER UNIT IV ONE (18:05)
[2022-03-19] MEDS ORDERED: GLOB31MI SC (19:50)
[2022-03-19] MEDS ORDERED: LANTINJ4 SC (19:50)
[2022-03-19] MEDS ORDERED: METF500T13 PO (19:50)
[2022-03-19 20:02] VITALS: BP 149/90
== END 2022-03-19 20:03 | disposition home or self-care (01) ==
LOC: M ED 16:22
DX: E11.65 Type 2 diabetes mellitus with hyperglycemia (principal); I10 Essential (primary) hypertension; Z91.14 Patient's other noncompliance with medication regimen; Z87.442 Personal history of urinary calculi; Q60.3 Renal hypoplasia, unilateral; Z91.041 Radiographic dye allergy status; Z79.899 Other long term (current) drug therapy; Z79.84 Long term (current) use of oral hypoglycemic drugs
CPT/HCPCS: 80048; 82803; 85025; 96361; 96374; 99284; J1815

== ENCOUNTER → 2022-05-20 | Outpatient (CLI) | payer OTHER ==
[~2022-05-20] MED LIST changes: +GLOB31MI SC; +LANTINJ4 SC; +METF500T13 PO
== END ==
LOC: M RAD 16:08
PROVIDERS: ATTEND Physician Assistant
DX: N12 Tubulo-interstitial nephritis, not specified as acute or chronic (principal)

== ENCOUNTER → 2022-05-27 | Outpatient (REF) | payer OTHER ==
[2022-05-27 19:32] LABS: APPEARANCE, URINE MANUAL HAZY (CLEAR); BILIRUBIN, URINE MANUAL NEGATIVE (NEGATIVE); BLOOD URINE MANUAL POSITIVE (NEGATIVE); COLOR, URINE MANUAL YELLOW (YELLOW); GLUCOSE, URINE (UA) MANUAL 2+(250 MG/DL) mg/dL (NEGATIVE); KETONE, URINE MANUAL NEGATIVE (NEGATIVE); LEUKOCYTE ESTERASE, URINE MAN POSITIVE (NEGATIVE); NITRITE, URINE MANUAL POSITIVE (NEGATIVE); PROTEIN, URINE MANUAL 1+ mg/dL (NEGATIVE); UROBILINOGEN, URINE MANUAL NORMAL (NORMAL)
[2022-05-27 19:53] LABS: SQUAMOUS EPITHELIAL CELL URINE MOD AMOUNT /hpf (SMALL AMT); WBC, URINE 20-30 /hpf (0-3)
[2022-05-27 19:54] LABS: BACTERIA, URINE LARGE AMOUNT; HYALINE CAST, URINE NONE SEEN /lpf (0-1)
== END ==
LOC: M SMT 16:48
PROVIDERS: ATTEND Physician Assistant
DX: R10.9 Unspecified abdominal pain (principal)

== ENCOUNTER → 2022-12-02 | Outpatient (REF) | payer OTHER ==
[~2022-12-02] MED LIST changes: -DOXY-350 PO; +DOXY-444 PO
[2022-12-02 13:03] LABS: HEMOGLOBIN A1c 8.5 % (4.0-6.0)
[2022-12-02 15:39] LABS: CHOLESTEROL RISK RATIO 4.42 (<5); HDL CHOLESTEROL 42.3 MG/DL (>40); NON-HDL-C 144.7 MG/DL
[2022-12-02 18:25] LABS: LDL CHOLESTEROL 128.3 MG/DL (<100)
== END ==
LOC: M LAB REF 12:16
PROVIDERS: ATTEND Nurse Practitioner Family
DX: E11.8 Type 2 diabetes mellitus with unspecified complications (principal); I10 Essential (primary) hypertension; E78.5 Hyperlipidemia, unspecified; Z13.220 Encounter for screening for lipoid disorders; E55.9 Vitamin D deficiency, unspecified; E66.9 Obesity, unspecified

== ENCOUNTER → 2023-10-20 | Outpatient (CLI) | payer OTHER ==
[2023-10-20 18:28] LABS: BASO # 0.1 10^3/uL (0.0-0.2); BASO % 0.8 % (0.0-1.0); EOS # 0.1 10^3/uL (0.0-0.5); EOS % 1.1 % (0.0-3.0); HEMATOCRIT 46.4 % (42.0-52.0); LYMPH # 2.3 10^3/uL (1.5-5.0); LYMPH % 27.8 % (24.0-44.0); MEAN CORPUSCULAR HEMOGLOBIN 30.5 pg (27.0-33.0); MEAN CORPUSCULAR HGB CONC 34.5 g/dl (32.0-36.5); MEAN CORPUSCULAR VOLUME 88.4 fl (80.0-96.0); MONO # 0.4 10^3/uL (0.0-0.8); MONO % 4.2 % (2.0-8.0); NEUTROPHILS # 5.5 10^3/uL (1.5-8.5); NEUTROPHILS % 65.9 % (36.0-66.0); PLATELET COUNT, AUTOMATED 309 10^3/uL (150-450); RED BLOOD COUNT 5.25 10^6/uL (4.30-6.10); WHITE BLOOD COUNT 8.3 10^3/uL (4.0-10.0)
[2023-10-20 18:51] LABS: ALBUMIN 3.9 G/DL (3.2-5.2); ALKALINE PHOSPHATASE 133 U/L (46-116); ALT/SGPT 25 U/L (7.0-40); AST/SGOT 24 U/L (<34); BILIRUBIN,TOTAL 0.9 MG/DL (0.3-1.2); BLOOD UREA NITROGEN 13 MG/DL (9-23); CALCIUM LEVEL 9.7 MG/DL (8.3-10.6); CARBON DIOXIDE LEVEL 26 MMOL/L (20-31); CHLORIDE LEVEL 99 MMOL/L (98-107); CHOLESTEROL LEVEL 182 MG/DL (<200); CHOLESTEROL RISK RATIO 3.96 (<5); CREATININE FOR GFR 0.78 MG/DL (0.70-1.30); GLOMERULAR FILTRATION RATE > 60.0 (>49); GLUCOSE, FASTING 333 MG/DL (74-106); HDL CHOLESTEROL 45.9 MG/DL (>40); LDL CHOLESTEROL 119.9 MG/DL (<100); MAGNESIUM LEVEL 1.9 MG/DL (1.8-2.4); NON-HDL-C 136.1 MG/DL; POTASSIUM SERUM 4.2 MMOL/L (3.5-5.1); SODIUM LEVEL 133 MMOL/L (136-145); TOTAL PROTEIN 7.3 G/DL (5.7-8.2); TRIGLYCERIDES LEVEL 81 MG/DL (<150)
[2023-10-20 18:54] LABS: THYROID STIMULATING HORMONE 1.746 uIU/ML (0.55-4.78)
[2023-10-20 20:32] LABS: HEMOGLOBIN A1c > 14.0 % (4.0-6.0)
== END ==
LOC: M WUC 11:48
PROVIDERS: ATTEND Physician Assistant
DX: M25.511 Pain in right shoulder (principal); I10 Essential (primary) hypertension; R53.83 Other fatigue; E11.9 Type 2 diabetes mellitus without complications

== ENCOUNTER → 2024-01-15 | Outpatient (CLI) | payer OTHER | LOC: M RAD 06:44 | PROVIDERS: ATTEND Physician Assistant | DX: Z53.9 Procedure and treatment not carried out, unspecified reason (principal) ==

== ENCOUNTER → 2024-01-25 | Outpatient (CLI) | payer OTHER ==
[~2024-01-25] MED LIST changes: +DOXY-440 PO; -DOXY-444 PO
== END ==
LOC: M RAD 06:41
PROVIDERS: ATTEND Physician Assistant
DX: M25.511 Pain in right shoulder (principal)

== ENCOUNTER 2024-04-24 09:17 | Emergency (ER) | payer OTHER ==
[~2024-04-24] VITALS: Ht 175.3 cm; Wt 77.0 kg
[2024-04-24] MEDS ORDERED: BASA100I (09:42)
[2024-04-24] MEDS ORDERED: AMLO1TAB25 (09:42)
[2024-04-24 10:30] LABS: HEMATOCRIT 47.7 % (42.0-52.0); HEMOGLOBIN 15.8 g/dl (13.5-17.5); MEAN CORPUSCULAR HGB CONC 33.1 g/dl (32.0-36.5); MEAN CORPUSCULAR VOLUME 90.5 fl (80.0-96.0); PLATELET COUNT, AUTOMATED 286 10^3/uL (150-450); RED BLOOD COUNT 5.27 10^6/uL (4.30-6.10); WHITE BLOOD COUNT 7.4 10^3/uL (4.0-10.0)
[2024-04-24 10:59] LABS: BLOOD UREA NITROGEN 21 MG/DL (9-23); CALCIUM LEVEL 9.8 MG/DL (8.3-10.6); CARBON DIOXIDE LEVEL 29 MMOL/L (20-31); CHLORIDE LEVEL 106 MMOL/L (98-107); CREATININE FOR GFR 0.95 MG/DL (0.70-1.30); GLOMERULAR FILTRATION RATE > 60.0 (>49); GLUCOSE, FASTING 127 MG/DL (74-106); POTASSIUM SERUM 4.2 MMOL/L (3.5-5.1); SODIUM LEVEL 139 MMOL/L (136-145)
[2024-04-24] MEDS ORDERED: CHLO125TA PO (11:43)
[2024-04-24 11:48] VITALS: BP 184/106
[2024-04-24 13:15] VITALS: BP 175/106; TEMP 97.7; O2SAT 97
== END 2024-04-24 13:24 | disposition home or self-care (01) ==
LOC: M ED 09:17
DX: I10 Essential (primary) hypertension (principal); Z91.041 Radiographic dye allergy status; Z79.2 Long term (current) use of antibiotics; Z79.4 Long term (current) use of insulin; Z79.84 Long term (current) use of oral hypoglycemic drugs; Z79.899 Other long term (current) drug therapy

== ENCOUNTER → 2024-05-29 | Outpatient (REF) | payer OTHER ==
[~2024-05-29] MED LIST changes: +AMLO1TAB25; +BASA100I; +CHLO125TA PO
[2024-05-29 13:36] LABS: ALBUMIN 3.6 G/DL (3.2-5.2); ALKALINE PHOSPHATASE 111 U/L (46-116); ALT/SGPT 11 U/L (7.0-40); AST/SGOT 10 U/L (<34); BILIRUBIN,TOTAL 0.8 MG/DL (0.3-1.2); BLOOD UREA NITROGEN 16 MG/DL (9-23); CARBON DIOXIDE LEVEL 31 MMOL/L (20-31); CHLORIDE LEVEL 104 MMOL/L (98-107); CREATININE FOR GFR 0.86 MG/DL (0.70-1.30); GLOMERULAR FILTRATION RATE > 60.0 (>49); GLUCOSE, FASTING 177 MG/DL (74-106); POTASSIUM SERUM 4.2 MMOL/L (3.5-5.1); SODIUM LEVEL 138 MMOL/L (136-145); TOTAL PROTEIN 6.9 G/DL (5.7-8.2)
== END ==
LOC: M LAB REF 12:32
PROVIDERS: ATTEND Nurse Practitioner Family
DX: E11.9 Type 2 diabetes mellitus without complications (principal)

== ENCOUNTER → 2024-08-14 | Outpatient (REF) | payer OTHER | LOC: M LAB REF 16:23 | PROVIDERS: ATTEND Nurse Practitioner Family | DX: R39.9 Unspecified symptoms and signs involving the genitourinary system (principal) ==

== ENCOUNTER → 2024-09-05 | Outpatient (REF) | payer OTHER ==
[2024-09-05 17:01] LABS: BASO # 0.1 10^3/uL (0.0-0.2); BASO % 0.7 % (0.0-1.0); EOS # 0.1 10^3/uL (0.0-0.5); EOS % 1.5 % (0.0-3.0); HEMATOCRIT 45.3 % (42.0-52.0); HEMOGLOBIN 14.9 g/dl (13.5-17.5); LYMPH # 2.8 10^3/uL (1.5-5.0); LYMPH % 38.1 % (24.0-44.0); MEAN CORPUSCULAR HEMOGLOBIN 29.5 pg (27.0-33.0); MEAN CORPUSCULAR HGB CONC 32.9 g/dl (32.0-36.5); MEAN CORPUSCULAR VOLUME 89.7 fl (80.0-96.0); MONO # 0.4 10^3/uL (0.0-0.8); MONO % 5.5 % (2.0-8.0); NEUTROPHILS # 3.9 10^3/uL (1.5-8.5); NEUTROPHILS % 53.9 % (36.0-66.0); PLATELET COUNT, AUTOMATED 278 10^3/uL (150-450); RED BLOOD COUNT 5.05 10^6/uL (4.30-6.10); WHITE BLOOD COUNT 7.2 10^3/uL (4.0-10.0)
[2024-09-05 17:33] LABS: ALBUMIN 3.5 G/DL (3.2-5.2); ALKALINE PHOSPHATASE 98 U/L (40-129); ALT/SGPT 15 U/L (7.0-40); AST/SGOT 15 U/L (<34); BILIRUBIN,TOTAL 0.9 MG/DL (0.3-1.2); BLOOD UREA NITROGEN 17 MG/DL (9-23); CALCIUM LEVEL 9.9 MG/DL (8.3-10.6); CARBON DIOXIDE LEVEL 27 MMOL/L (20-31); CHLORIDE LEVEL 107 MMOL/L (98-107); CREATININE FOR GFR 0.95 MG/DL (0.70-1.30); GLOMERULAR FILTRATION RATE > 60.0 (>49); GLUCOSE, FASTING 123 MG/DL (74-106); PHOSPHORUS LEVEL 3.6 MG/DL (2.4-5.1); POTASSIUM SERUM 4.8 MMOL/L (3.5-5.1); SODIUM LEVEL 142 MMOL/L (136-145); TOTAL PROTEIN 6.6 G/DL (5.7-8.2)
[2024-09-05 17:59] LABS: CREATININE, URINE 53.6 MG/DL; MAU/CREAT RATIO 14.9 MCG/MG (0.0-30.0)
== END ==
LOC: M LAB REF 16:24
PROVIDERS: ATTEND Nurse Practitioner Family
DX: Z01.818 Encounter for other preprocedural examination (principal); I10 Essential (primary) hypertension; E11.9 Type 2 diabetes mellitus without complications

== ENCOUNTER → 2025-01-01 | Outpatient (REF) | payer OTHER | LOC: M LAB REF 11:59 | PROVIDERS: ATTEND Nurse Practitioner Family | DX: R39.9 Unspecified symptoms and signs involving the genitourinary system (principal) ==

== ENCOUNTER → 2025-01-01 | Outpatient (REF) | payer OTHER ==
[2025-01-01 15:09] LABS: BASO # 0.1 10^3/uL (0.0-0.2); BASO % 0.7 % (0.0-1.0); EOS # 0.1 10^3/uL (0.0-0.5); EOS % 1.2 % (0.0-3.0); HEMATOCRIT 50.5 % (42.0-52.0); HEMOGLOBIN 17.3 g/dl (13.5-17.5); LYMPH # 2.3 10^3/uL (1.5-5.0); LYMPH % 27.3 % (24.0-44.0); MEAN CORPUSCULAR HEMOGLOBIN 28.7 pg (27.0-33.0); MEAN CORPUSCULAR HGB CONC 34.3 g/dl (32.0-36.5); MEAN CORPUSCULAR VOLUME 83.7 fl (80.0-96.0); MONO # 0.4 10^3/uL (0.0-0.8); MONO % 4.8 % (2.0-8.0); NEUTROPHILS # 5.6 10^3/uL (1.5-8.5); NEUTROPHILS % 65.6 % (36.0-66.0); PLATELET COUNT, AUTOMATED 295 10^3/uL (150-450); RED BLOOD COUNT 6.03 10^6/uL (4.30-6.10); WHITE BLOOD COUNT 8.6 10^3/uL (4.0-10.0)
[2025-01-01 15:25] LABS: ALBUMIN 3.7 G/DL (3.2-5.2); BILIRUBIN,TOTAL 0.7 MG/DL (0.3-1.2); CALCIUM LEVEL 9.7 MG/DL (8.3-10.6); CHOLESTEROL RISK RATIO 5.77 (<5); CREATININE FOR GFR 0.98 MG/DL (0.70-1.30); GLOMERULAR FILTRATION RATE 86.1 (>49); HDL CHOLESTEROL 31.7 MG/DL (>40); LDL CHOLESTEROL 109.3 MG/DL (<100); MAGNESIUM LEVEL 2.2 MG/DL (1.8-2.4); NON-HDL-C 151.3 MG/DL; POTASSIUM SERUM 4.2 MMOL/L (3.5-5.1); THYROID STIMULATING HORMONE 1.216 uIU/ML (0.55-4.78); TOTAL PROTEIN 7.2 G/DL (5.7-8.2)
[2025-01-01 16:33] LABS: HEMOGLOBIN A1c > 14.0 % (4.0-6.0)
== END ==
LOC: M LAB REF 14:11
PROVIDERS: ATTEND Nurse Practitioner Family
DX: E66.3 Overweight (principal); E55.9 Vitamin D deficiency, unspecified

== ENCOUNTER → 2025-04-02 | Outpatient (REF) | payer OTHER ==
[2025-04-02 13:02] LABS: ALT/SGPT 15.0 U/L (7.0-40); AST/SGOT 19.0 U/L (<34); CALCIUM LEVEL 9.9 MG/DL (8.3-10.6); CARBON DIOXIDE LEVEL 27.0 MMOL/L (20-31); CHLORIDE LEVEL 102.0 MMOL/L (98-107); CHOLESTEROL LEVEL 211.0 MG/DL (<200); CHOLESTEROL RISK RATIO 4.47 (<5); CREATININE FOR GFR 1.01 MG/DL (0.70-1.30); GLOMERULAR FILTRATION RATE 83.1 (>49); LDL CHOLESTEROL 149.1 MG/DL (<100); NON-HDL-C 163.9 MG/DL; POTASSIUM SERUM 4.3 MMOL/L (3.5-5.1); SODIUM LEVEL 141.0 MMOL/L (136-145); TRIGLYCERIDES LEVEL 74.0 MG/DL (<150)
[2025-04-02 13:09] LABS: ESTIMATED AVERAGE GLUCOSE 312.0 MG/DL (60-110)
== END ==
LOC: M LAB REF 12:00
PROVIDERS: ATTEND Nurse Practitioner Family
DX: E11.9 Type 2 diabetes mellitus without complications (principal); E78.5 Hyperlipidemia, unspecified

== ENCOUNTER → 2025-07-02 | Outpatient (REF) | payer OTHER ==
[2025-07-02 12:32] LABS: APPEARANCE, URINE HAZY (CLEAR); BACTERIA, URINE AUTO 1+ (NEGATIVE); BILIRUBIN, URINE AUTO NEGATIVE (NEGATIVE); BLOOD, URINE BLOOD 1+ (NEGATIVE); GLUCOSE, URINE (UA) AUTO 3+ mg/dL (NEGATIVE); KETONE, URINE AUTO NEGATIVE (NEGATIVE); LEUKOCYTE ESTERASE, URINE AUTO 2+ (NEGATIVE); MUCUS, URINE SMALL (NEGATIVE); NITRITE, URINE AUTO POSITIVE (NEGATIVE); PROTEIN, URINE AUTO NEGATIVE (NEGATIVE); RBC, URINE AUTO 2 /HPF (0-3); SPECIFIC GRAVITY URINE AUTO 1.021 (1.002-1.035); SQUAMOUS EPITHELIAL CELL UR AU 1 /HPF (0-6); UROBILINOGEN, URINE AUTO 2.0 mg/dL (0.0-2.0); WBC, URINE AUTO 24 /HPF (0-3)
[2025-07-02 12:47] LABS: CREATININE, URINE 99.4 MG/DL; MALB URINE SIEMENS 3.0 MG/L
[2025-07-02 16:00] LABS: ALT/SGPT 13.0 U/L (7.0-40); AST/SGOT 18.0 U/L (<34); CALCIUM LEVEL 9.5 MG/DL (8.3-10.6); CARBON DIOXIDE LEVEL 31.0 MMOL/L (20-31); CHLORIDE LEVEL 102.0 MMOL/L (98-107); CHOLESTEROL LEVEL 203.0 MG/DL (<200); CHOLESTEROL RISK RATIO 5.02 (<5); CREATININE FOR GFR 1.09 MG/DL (0.70-1.30); GLOMERULAR FILTRATION RATE 75.8 (>49); LDL CHOLESTEROL 146.8 MG/DL (<100); NON-HDL-C 162.6 MG/DL; POTASSIUM SERUM 4.3 MMOL/L (3.5-5.1); SODIUM LEVEL 142.0 MMOL/L (136-145); TRIGLYCERIDES LEVEL 79.0 MG/DL (<150)
[2025-07-02 16:25] LABS: ESTIMATED AVERAGE GLUCOSE 200.0 MG/DL (60-110)
[2025-07-02 17:15] LABS: MAU/CREAT RATIO 0.0 MCG/MG (0.0-30.0)
== END ==
LOC: M LAB REF 11:46
PROVIDERS: ATTEND Physician Assistant
DX: I10 Essential (primary) hypertension (principal); E78.5 Hyperlipidemia, unspecified; E11.9 Type 2 diabetes mellitus without complications